=== PATIENT | female | born 1995 | race Two or more races ===

== ENCOUNTER 2024-09-27 12:19 | Observation (INO) | payer MEDICAID ==
[~2024-09-27 12:19] MED LIST: PREN-96 PO
--- NOTE | 2024-09-27 14:03 | DVH ---
LIMITED OB ULTRASOUND > 14 WKS: HISTORY: cervical length TECHNIQUE: Multiple real-time grayscale images of the gravid uterus with duplex Doppler color flow an d M-mode spectral analysis. TRANSDUCER: Transabdominal COMPARISON: None FINDINGS: IUP single live fetus. heart rate 155 beats per minute Maximum vertical pocket is 5.4 cm. Cervix appears closed with a cervical length of 5.1 cm. Cephalic Presentation Anterior placenta without previa or abruption. IMPRESSION: 1. Single live IUP with heart rate of 155 bpm. 2. Cervix appears closed and measures 5.1 cm in length.
--- NOTE | 2024-09-29 00:20 | DVHDS2 ---
Physician Discharge Progress N Final Diagnosis: abd pain 26wks Operations or Procedures: Operations or Procedures nst reviwed reactive,sono Condition on Discharge: Good Disposition: Home Discharge Instructions: Diet: Regular Activity: No Restrictions, As Tolerated Medications: na Follow Up Care: Specialist: 3d Discharge Statement: "Patient was advised to return to the ER or call 911 if any headaches, dizziness, shortness of breath, chest pain, abdominal pain, bleeding, fevers, or worsening of medical condition. Patient was counseled about treatment plan, medications, possible side effects, patientverbalized understanding. All questions were answered to the best of my ability. This discharge took greater then 30 minutes in planning, reviewing docum entation, counseling the patient, and discussing with other team members." Visit Coding OBGYN Date of Service: Sep 27, 2024 Billing Provider: ROCIO DAWSON DO RN IMAGING Common Visit Codes: [id number] INP/OBS CARE (HIGH) RN IMAGING Procedure Codes: 54389-23- NON-STRESS TEST ORCIO DAWSON DO Sep 29, 2024 00:20
== END 2024-09-27 14:50 | disposition home or self-care (01) ==
LOC: LDRP 12:19
PROVIDERS: ADMIT Obstetrics & Gynecology; ATTEND Obstetrics & Gynecology
DX: O26.892 Other specified pregnancy related conditions, second trimester (principal); R10.30 Lower abdominal pain, unspecified; Z3A.26 26 weeks gestation of pregnancy; Z79.899 Other long term (current) drug therapy; Z98.890 Other specified postprocedural states
CPT/HCPCS: 59025; 76815; 81002; 94760; G0378

== ENCOUNTER 2024-10-27 09:06 | Observation (INO) | payer MEDICAID ==
[2024-10-27] MEDS ORDERED: OMEGCAP2 OR (09:40)
[2024-10-27] MEDS ORDERED: CHOL20007 PO (09:40)
[2024-10-27] MEDS ORDERED: ASPI-543 PO (09:40)
[2024-10-27] MEDS ORDERED: LEVO25CA3 PO (09:40)
[2024-10-27] MEDS ORDERED: DOXY25TA9 PO (09:40)
--- NOTE | 2024-10-27 17:01 | DVHDS2 ---
Physician Discharge Progress N Final Diagnosis: testing for GDM, A1 and hypothyroidism Operations or Procedures: Operations or Procedures 29yo IUP@30.4wks VSS NST reactive FKC/PTL precautions reviewed Dr. Irizarry consulted, agrees with POC. Condition on Discharge: Stable Disposition: Home Discharge Instructions: Diet: Consistent carbohydrate Activity: No Restrictions, As Tolerated Medications: see med list Follow Up Care: Specialist: f/u in 1wk Discharge Statement: "Patient was advised to return to the ER or call 911 if any headaches, dizziness, shortness of breath, chest pain, abdominal pain, bleeding, fevers, or worsening of medical condition. Patient was counseled about treatment plan, medications, possible side effects, patientverbalized understanding. All questions were answered to the best of my ability. This discharge took greater then 30 minutes in planning, reviewing documentation, counseling the patient, and discussing with other team members." Visit Coding OBGYN Date of Service: Oct 27, 2024 Billing Provider: EDEN GARCIA CNM RAW STOCK DYEING MACHINE TENDER Common Visit Codes: 53087-[id number] OBS CARE (HIGH) RAW STOCK DYEING MACHINE TENDER Procedure Codes: 65655-68- NON-STRESS TEST EDEN GARCIA CNM Oct 27, 2024 17:01
== END 2024-10-27 09:55 | disposition home or self-care (01) ==
LOC: LDRP 09:06
PROVIDERS: ADMIT Obstetrics & Gynecology; ATTEND Obstetrics & Gynecology
DX: O24.419 Gestational diabetes mellitus in pregnancy, unspecified control (principal); O99.283 Endocrine, nutritional and metabolic diseases complicating pregnancy, third trimester; E03.9 Hypothyroidism, unspecified; Z3A.30 30 weeks gestation of pregnancy; Z98.890 Other specified postprocedural states; Z79.899 Other long term (current) drug therapy
CPT/HCPCS: 59025; 81002; 82948; 82962; 94760; G0378

== ENCOUNTER 2024-11-03 06:21 | Observation (INO) | payer MEDICAID ==
[~2024-11-03 06:21] MED LIST changes: +ASPI-543 PO; +CHOL20007 PO; +DOXY25TA9 PO; +LEVO25CA3 PO; +OMEGCAP2 OR
--- NOTE | 2024-11-03 10:10 | DVHDS2 ---
Physician Discharge Progress N Final Diagnosis: testing for GDM, A1 and hypothyroidism Operations or Procedures: Operations or Procedures 29yo IUP@31.4wks VSS NST reactive FKC/PTL precautions reviewed Dr. Irizarry consulted, agrees with POC. Condition on Discharge: Stable Disposition: Home Discharge Instructions: Diet: Consistent carbohydrate Activity: No Restrictions, As Tolerated Medications: SEE MED LIST Follow Up Care: Specialist: f/u in 1 wk Discharge Statement: "Patient was advised to return to the ER or call 911 if any headaches, dizziness, shortness of breath, chest pain, abdominal pain, bleeding, fevers, or worsening of medical condition. Patient was counseled about treatment plan, medications, possible side effects, patientverbalized understanding. All questions were answered to the best of my ability. This discharge took greater then 30 minutes in planning, reviewing documentation, counseling the patient, and discussing with other team members." Visit Coding OBGYN Date of Service: Nov 03, 2024 Billing Provider: EDEN GARCIA CNM BARREL FINISHER Common Visit Codes: 54077-[id number] OBS CARE (HIGH) BARREL FINISHER Procedure Codes: 13338-42- NON-STRESS TEST EDEN GARCIA CNM Nov 03, 2024 10:10
== END 2024-11-03 10:18 | disposition home or self-care (01) ==
LOC: LDRP 09:10
PROVIDERS: ADMIT Obstetrics & Gynecology; ATTEND Obstetrics & Gynecology
DX: O24.419 Gestational diabetes mellitus in pregnancy, unspecified control (principal); O99.283 Endocrine, nutritional and metabolic diseases complicating pregnancy, third trimester; E03.9 Hypothyroidism, unspecified; Z3A.31 31 weeks gestation of pregnancy; Z79.899 Other long term (current) drug therapy; Z98.890 Other specified postprocedural states
CPT/HCPCS: 59025; 81002; 82948; 82962; 94760; G0378

== ENCOUNTER 2024-11-10 10:07 | Observation (INO) | payer MEDICAID ==
--- NOTE | 2024-11-10 10:57 | DVH ---
CLINICAL HISTORY: Gestational diabetes. Hypothyroid COMPARISON: None TECHNIQUE: biophysical profile was performed. Transabdominal sonographic images of the fetus we re obtained. FINDINGS: The fetus is in breech position. heart rate measures 168 BPM. Amniotic fluid index me asures 19.6 cm. The placenta is anterior in position without visualized evidence of placenta previa o r abruption. BPP profile is an overall score of 8/8, with 2/2 points for breathing, with at least one episode of breathing over a 30 second duration during a 30 minute observation, 2/2 points for m ovements, with 3 or more discrete body or limb movements, 2/2 points for tone, with one or more episodes of extremity extension with return to flexion, or opening and closing of hand, and 2/ 2 points for amniotic fluid, with at least 1 pocket of amniotic fluid that measures 2 cm in 2 perpend icular planes. IMPRESSION: 1. BPP score of 8/8. 2. Breech presentation.
--- NOTE | 2024-11-10 12:18 | DVHDS2 ---
Physician Discharge Progress N Final Diagnosis: testing for GDM, A1 and hypothyroidism Operations or Procedures: Operations or Procedures 29yo IUP@32.4wks, +FM, denies UCs/VB VSS NST reactive/Category I EFM TOCO: irregular UCs initially, treated with 1L LR IV bolus then no UCs noted FKC/PTL precautions reviewed Recommended spinning babies breech exercises and [place] certified pediatric acute care unit nurse for breech presentation. Dr. Irizarry consulted, agrees with POC. Other Interventions Other Interventions [place] [address] Ph: [phone] DIAGNOSTIC IMAGING Diagnostic Imaging Report : [id number] Signed PATIENT: JESE COFFEY ACCT: [id number] UNIT: [id number] : 1995 LOC: [facility] ROOM / BED: [facility] / AGE / SEX: 29 / F ADM STATUS: ADM IN SERVICE 1026 ORDERING PHYSICIAN: EDEN GARCIA CNM PROCEDURE(s): BPP - BIOPHYSICAL PROFILE REASON: gdma1/hypothyroid ORDER NUMBER(s): [id number], ACCESSION NUMBER(s): [id number] CLINICAL HISTORY: Gestational diabetes. Hypothyroid COMPARISON: None TECHNIQUE: biophysical profile was performed. Transabdominal sonographic images of the fetus were obtained. FINDINGS: The fetus is in breech position. heart rate measures 168 BPM. Amniotic fluid index measures 19.6 cm. The placenta is anterior in position without visualized evidence of placenta previa or abruption. BPP profile is an overall score of 8/8, with 2/2 points for breathing, with at least one episode of breathing over a 30 second duration during a 30 minute observation, 2/2 points for movements, with 3 or more discrete body or limb movements, 2/2 points for tone, with one or more episodes of extremity extension with return to flexion, or opening and closing of hand, and 2/2 points for amniotic fluid, with at least 1 pocket of amniotic fluid that measures 2 cm in 2 perpendicular planes. IMPRESSION: 1. BPP score of 8/8. 2. Breech presentation. ATED BY: TERRY IBARRA DO DICTATED DATE/TIME: 11/10/241054 SIGNED BY: TERRY IBARRA DO SIGNED DATE/TIME: 11/10/24 105 CC: Condition on Discharge: Stable Disposition: Home Discharge Instructions: Diet: Consistent carbohydrate Activity: No Restrictions, As Tolerated Medications: see med list Follow Up Care: Specialist: f/u in 1 wk Discharge Statement: "Patient was advised to return to the ER or call 911 if any headaches, dizziness, shortness of breath, chest pain, abdominal pain, bleeding, fevers, or worsening of medical condition. Patient was counseled about treatment plan, medications, possible side effects, patientverbalized understanding. All questions were answered to the best of my ability. This discharge took greater then 30 minutes in planning, reviewing documentation, counseling the patient, and discussing with other team members." Visit Coding OBGYN Date of Service: Nov 10, 2024 Billing Provider: EDEN GARCIA CNM DEEP FAT COOK FRY Common Visit Codes: [id number]-[id number] OBS CARE (HIGH) DEEP FAT COOK FRY Procedure Codes: 05957-08- NON-STRESS TEST EDEN GARCIA CNM Nov 10, 2024 12:18
== END 2024-11-10 12:50 | disposition home or self-care (01) ==
LOC: LDRP 10:07
PROVIDERS: ADMIT Obstetrics & Gynecology; ATTEND Obstetrics & Gynecology
DX: O24.419 Gestational diabetes mellitus in pregnancy, unspecified control (principal); O99.283 Endocrine, nutritional and metabolic diseases complicating pregnancy, third trimester; E03.9 Hypothyroidism, unspecified; Z3A.32 32 weeks gestation of pregnancy; Z98.890 Other specified postprocedural states; Z79.899 Other long term (current) drug therapy
CPT/HCPCS: 59025; 76819; 81002; 82948; 82962; 94760; G0378

== ENCOUNTER 2024-11-17 07:27 | Observation (INO) | payer MEDICAID ==
--- NOTE | 2024-11-17 08:59 | DVH ---
CLINICAL HISTORY: Gestational diabetes. COMPARISON: US BIOPHYSICAL PROFILE on DOS: 11/10/24 TECHNIQUE: biophysical profile was performed. Transabdominal sonographic images of the fetus we re obtained. FINDINGS: The fetus is in cephalic position. heart rate measures 150 BPM. Amniotic fluid index measures 16.1 cm. The placenta is anterior in position without evidence of previa or abruption seen. BPP profile is an overall score of 8/8, with 2/2 points for breathing, with at least one episode of breathing over a 30 second duration during a 30 minute observation, 2/2 points for m ovements, with 3 or more discrete body or limb movements, 2/2 points for tone, with one or more episodes of extremity extension with return to flexion, or opening and closing of hand, and 2/ 2 points for amniotic fluid, with at least 1 pocket of amniotic fluid that measures 2 cm in 2 perpend icular planes. IMPRESSION: 1. BPP score of 8/8. 2. Cephalic presentation.
--- NOTE | 2024-11-17 09:17 | DVHDS2 ---
Physician Discharge Progress N Final Diagnosis: testing for GDM, A1 and hypothyroidism Operations or Procedures: Operations or Procedures 29yo IUP@33.4wks VSS NST reactive FKC/PTL precautions reviewed Dr. Irizarry consulted, agrees with POC. Other Interventions Other Interventions [address] [address] Ph: [phone] DIAGNOSTIC IMAGING Diagnostic Imaging Report : [id number] Signed PATIENT: JESE COFFEY ACCT: [id number] UNIT: [id number] : 1995 LOC: [facility] ROOM / BED: TRIAGE3 / A AGE / SEX: 29 / F ADM STATUS: ADM IN SERVICE 3 ORDERING PHYSICIAN: EDEN GARCIA CNM PROCEDURE(s): BPP - BIOPHYSICAL PROFILE REASON: gdma1 ORDER NUMBER(s): [id number], ACCESSION NUMBER(s): [id number] CLINICAL HISTORY: Gestational diabetes. COMPARISON: US BIOPHYSICAL PROFILE on DOS: 11/10/24 TECHNIQUE: biophysical profile was performed. Transabdominal sonographic images of the fetus were obtained. FINDINGS: The fetus is in cephalic position. heart rate measures 150 BPM. Amniotic fluid index measures 16.1 cm. The placenta is anterior in position without evidence of previa or abruption seen. BPP profile is an overall score of 8/8, with 2/2 points for b reathing, with at least one episode of breathing over a 30 second duration during a 30 minute observation, 2/2 points for movements, with 3 or more discrete body or limb movements, 2/2 points for tone, with one or more episodes of extremity extension with return to flexion, or opening and closing of hand, and 2/2 points for amniotic fluid, with at least 1 pocket of amniotic fluid that measures 2 cm in 2 perpendicular planes. IMPRESSION: 1. BPP score of 8/8. 2. Cephalic presentation. ATED BY: TERRY IBARRA DO DICTATED DATE/TIME: 11/17/24855 SIGNED BY: TERRY IBARRA DO SIGNED DATE/TIME: 11/17/24855 CC: Condition on Discharge: Stable Disposition: Home Discharge Instructions: Diet: Consistent carbohydrate Activity: No Restrictions, As Tolerated Medications: see med list Follow Up Care: Specialist: f/u in 1wk Discharge Statement: "Patient was advised to return to the ER or call 911 if any headaches, dizziness, shortness of breath, chest pain, abdominal pain, bleeding, fevers, or worsening of medical condition. Patient was counseled about treatment plan, medications, possible side effects, patientverbalized understanding. All questions were answered to the best of my ability. This discharge took greater then 30 minutes in planning, reviewing documentation, counseling the patient, and discussing with other team members." Visit Coding OBGYN Date of Service: Nov 17, 2024 Billing Provider: EDEN GARCIA CNM PLATER APPRENTICE Common Visit Codes: [id number]-[id number] OBS CARE (HIGH) PLATER APPRENTICE Procedure Codes: 02641-42- NON-STRESS TEST EDEN GARCIA CNM Nov 17, 2024 09:17
== END 2024-11-17 09:10 | disposition home or self-care (01) ==
LOC: UNDOADMOB 08:03 → LDRP 08:03
PROVIDERS: ADMIT Obstetrics & Gynecology; ATTEND Obstetrics & Gynecology
DX: O24.419 Gestational diabetes mellitus in pregnancy, unspecified control (principal); O99.283 Endocrine, nutritional and metabolic diseases complicating pregnancy, third trimester; E03.9 Hypothyroidism, unspecified; Z3A.33 33 weeks gestation of pregnancy; Z98.890 Other specified postprocedural states; Z79.899 Other long term (current) drug therapy
CPT/HCPCS: 59025; 76819; 81002; 82948; 82962; 94760; G0378

== ENCOUNTER 2024-11-24 00:41 | Observation (INO) | payer MEDICAID ==
--- NOTE | 2024-11-24 10:18 | DVH ---
BIOPHYSICAL PROFILE HISTORY: GDMA1/Hypothyroid TECHNIQUE: Multiple transabdominal real-time grayscale sonographic images through the gravid uterus o f the fetus with duplex doppler color flow and M-mode spectral analysis FINDINGS: BIOPHYSICAL PROFILE: breathing score: 2 movement score: 2 tone score: 2 Quantitative NICOLE score: 2 (NICOLE: 14.9 cm.) Total score: 8/8 Single live fetus in cephalic presentation. heart rate 146 beats per minute. Anterior placenta without previa or abruption Biophysical profile score 8/8 corresponding to an CLARA of 01/01/25 IMPRESSION: Biophysical profile score: 8/8
--- NOTE | 2024-11-24 10:33 | DVHDS2 ---
Physician Discharge Progress N Final Diagnosis: testing for GDM, A1 Operations or Procedures: Operations or Procedures 29yo IUP@34.4wks, +FM, denies UCs/LOF/VB VSS Unable to get continuous NST due to movement (FHR baseline 140, +accels, - decels, moderate variability) TOCO no UCs BPP 8/8 FKC/PTL/PreE precautions reviewed Dr. Irizarry consulted, agrees with POC. Other Interventions Other Interventions [place] [address] Ph: [phone] DIAGNOSTIC IMAGING Diagnostic Imaging Report : [id number] Signed PATIENT: JESE COFFEY ACCT: [id number] UNIT: [id number] : 1995 LOC: [facility] ROOM / BED: TRIAGE2 / A AGE / SEX: 29 / F ADM STATUS: ADM IN SERVICE 0910 ORDERING PHYSICIAN: EDEN GARCIA CNM PROCEDURE(s): BPP - BIOPHYSICAL PROFILE REASON: GDMA1/Hypothyroid ORDER NUMBER(s): [id number], ACCESSION NUMBER(s): [id number] BIOPHYSICAL PROFILE HISTORY: GDMA1/Hypothyroid TECHNIQUE: Multiple transabdominal real-time grayscale sonographic images through the gravid uterus of the fetus with duplex doppler color flow and M-mode spectral analysis FINDINGS: BIOPHYSICAL PROFILE: breathing score: 2 movement score: 2 tone score: 2 Quantitative NICOLE score: 2 (NICOLE: 14.9 cm.) Total score: 8/8 Single live fetus in cephalic presentation. heart rate 146 beats per min [place]. Anterior placenta without previa or abruption Biophysical profile score 8/8 corresponding to an CLARA of 01/01/25 IMPRESSION: Biophysical profile score: 8/8 ATED BY: SANTOSH GALVEZ MD DICTATED DATE/TIME: 11/24/24 1016 SIGNED BY: SANTOSH GALVEZ MD SIGNED DATE/TIME: 11/24/24 1016 CC: Condition on Discharge: Stable Disposition: Home Discharge Instructions: Diet: Consistent carbohydrate Activity: No Restrictions, As Tolerated Follow Up/Referral: as scheduled. Medications: see med list Follow Up Care: Specialist: f/u in 1 wk Discharge Statement: "Patient was advised to return to the ER or call 911 if any headaches, dizziness, shortness of breath, chest pain, abdominal pain, bleeding, fevers, or worsening of medical condition. Patient was counseled about treatment plan, medications, possible side effects, patientverbalized understanding. All questions were answered to the best of my ability. This discharge took greater then 30 minutes in planning, reviewing docume ntation, counseling the patient, and discussing with other team members." Visit Coding OBGYN Date of Service: Nov 24, 2024 Billing Provider: EDEN GARCIA CNM PUBLIC AFFAIRS MANAGER Common Visit Codes: [id number]-[id number] OBS CARE (HIGH) PUBLIC AFFAIRS MANAGER Procedure Codes: 04019-51- NON-STRESS TEST EDEN GARCIA CNM Nov 24, 2024 10:33
== END 2024-11-24 10:22 | disposition home or self-care (01) ==
LOC: LDRP 09:05
PROVIDERS: ADMIT Obstetrics & Gynecology; ATTEND Obstetrics & Gynecology
DX: O24.419 Gestational diabetes mellitus in pregnancy, unspecified control (principal); O99.283 Endocrine, nutritional and metabolic diseases complicating pregnancy, third trimester; E03.9 Hypothyroidism, unspecified; Z3A.34 34 weeks gestation of pregnancy; Z98.890 Other specified postprocedural states; Z79.899 Other long term (current) drug therapy
CPT/HCPCS: 59025; 76819; 81002; 82948; 82962; 94760; G0378

== ENCOUNTER 2024-12-01 07:10 | Observation (INO) | payer MEDICAID ==
--- NOTE | 2024-12-01 09:51 | DVH ---
BIOPHYSICAL PROFILE HISTORY: GDMA1 and Hypothyroid TECHNIQUE: Multiple transabdominal real-time grayscale sonographic images through the gravid uterus o f the fetus with duplex doppler color flow and M-mode spectral analysis FINDINGS: BIOPHYSICAL PROFILE: breathing score: 2 movement score: 2 tone score: 2 Quantitative NICOLE score: 2 (INCOLE: 14.7 cm.) Total score: 8/8 Single live fetus in cephalic presentation. heart rate 157 beats per minute. Anterior placenta without previa or abruption Biophysical profile score 8/8 corresponding to an CLARA of 01/01/25 IMPRESSION: Biophysical profile score: 8/8
--- NOTE | 2024-12-01 17:49 | DVHDS2 ---
Physician Discharge Progress N Final Diagnosis: testing for GDM, A1 and hypothyroid Operations or Procedures: Operations or Procedures 29yo IUP@35+wks VSS NST reactive FKC/PTL/preE precautions reviewed Dr. Irizarry consulted, agrees with poc. Other Interventions Other Interventions [address] [address] Ph: [phone] DIAGNOSTIC IMAGING Diagnostic Imaging Report : [id number] Signed PATIENT: JESE COFFEY ACCT: [id number] UNIT: [id number] : 1995 LOC: [facility] ROOM / BED: TRIAGE2 / A AGE / SEX: 29 / F ADM STATUS: ADM IN SERVICE 6 ORDERING PHYSICIAN: EDEN GARCIA CNM PROCEDURE(s): BPP - BIOPHYSICAL PROFILE REASON: GDMA1 and Hypothyroid ORDER NUMBER(s): [id number], ACCESSION NUMBER(s): [id number] BIOPHYSICAL PROFILE HISTORY: GDMA1 and Hypothyroid TECHNIQUE: Multiple transabdominal real-time grayscale sonographic images through the gravid uterus of the fetus with duplex doppler color flow and M-mode spectral analysis FINDINGS: BIOPHYSICAL PROFILE: breathing score: 2 movement score: 2 tone score: 2 Quantitative NICOLE score: 2 (NICOLE: 14.7 cm.) Total score: 8/8 Single live fetus in cephalic presentation. heart rate 157 beats per minute. Anterior placenta without previa or abruption Biophysical profile score 8/8 corresponding to an CLARA of 01/01/25 IMPRESSION: Biophysical profile score: 8/8 ATED BY: SANTOSH GALVEZ MD DICTATED DATE/TIME: 12/01/24948 SIGNED BY: SANTOSH GALVEZ MD SIGNED DATE/TIME: 12/01/24948 CC: Condition on Discharge: Stable Disposition: Home Discharge Instructions: Diet: Cardiac 2g Na,low cholest Activity: No Restrictions, As Tolerated Follow Up/Referral: Keep all scheduled appointments Medications: Continue all prescription medication exactly as prescribed Follow Up Care: Specialist: f/u in 1wk Discharge Statement: "Patient was advised to return to the ER or call 911 if any headaches, dizziness, shortness of breath, chest pain, abdominal pain, bleeding, fevers, or worsening of medical condition. Patient was counseled about treatment plan, medications, possible side effects, patientverbalized understanding. All questions were answered to the best of my ability. This discharge took greater then 30 minutes in planning, reviewing documentation, counseling the patient, and discussing with other team members." Visit Coding OBGYN Date of Service: Dec 01, 2024 Billing Provider: EDEN GARCIA CNM REGISTERED DIETICIAN Common Visit Codes: 48421-[id number] OBS CARE (HIGH) REGISTERED DIETICIAN Procedure Codes: 30772-15- NON-STRESS TEST EDEN GARCIA CNM Dec 01, 2024 17:49
== END 2024-12-01 10:25 | disposition home or self-care (01) ==
LOC: LDRP 08:53
PROVIDERS: ADMIT Obstetrics & Gynecology; ATTEND Obstetrics & Gynecology
DX: O24.419 Gestational diabetes mellitus in pregnancy, unspecified control (principal); O99.283 Endocrine, nutritional and metabolic diseases complicating pregnancy, third trimester; E03.9 Hypothyroidism, unspecified; Z3A.35 35 weeks gestation of pregnancy; Z98.890 Other specified postprocedural states; Z79.899 Other long term (current) drug therapy
CPT/HCPCS: 59025; 76819; 81002; 82948; 82962; G0378

== ENCOUNTER 2024-12-08 08:55 | Observation (INO) | payer MEDICAID ==
--- NOTE | 2024-12-08 09:46 | DVH ---
BIOPHYSICAL PROFILE HISTORY: GDMA1,Hypothyroidism, arrythmia Comparison Study: US BIOPHYSICAL PROFILE on DOS: 12/01/24, US BIOPHYSICAL PROFILE on DOS: 11/24/24, US B IOPHYSICAL PROFILE on DOS: 11/17/24, US BIOPHYSICAL PROFILE on DOS: 11/10/24, US OBSTERICAL LIMITED on DOS: 09/27/24 TECHNIQUE: Multiple real-time grayscale sonographic images through the gravid uterus of the fetus wi th duplex Doppler color flow and M-mode spectral analysis FINDINGS: BIOPHYSICAL PROFILE: breathing score: 2 movement score: 2 tone score: 2 Quantitative NICOLE score: 2 (NICOLE: 15 Cm.) Total score: 8 The cervix is not visualized Single live fetus in cephalic presentation. heart rate 136 beats per minute. Anterior placenta without previa or abruption IMPRESSION: Biophysical profile score: 8
--- NOTE | 2024-12-08 13:15 | DVHDS2 ---
Physician Discharge Progress N Final Diagnosis: testing for GDM, A1/hypothyroidism/ arrythmia Operations or Procedures: Operations or Procedures 29yo IUP@36.4wks, denies UCs/VB/LOF VSS NST reactive FKC/PTL precautions reviewed. Dr. Irizarry consulted, agrees with POC. Other Interventions Other Interventions [place] [address] Ph: [phone] DIAGNOSTIC IMAGING Diagnostic Imaging Report : [id number] Signed PATIENT: JESE COFFEY ACCT: [id number] UNIT: [id number] : 1995 LOC: [facility] ROOM / BED: TRIAGE2 / A AGE / SEX: 29 / F ADM STATUS: ADM IN SERVICE 5 ORDERING PHYSICIAN: EDEN GARCIA CNM PROCEDURE(s): BPP - BIOPHYSICAL PROFILE REASON: GDMA1,Hypothyroidism, arrythmia ORDER NUMBER(s): [id number], ACCESSION NUMBER(s): [id number] BIOPHYSICAL PROFILE HISTORY: GDMA1,Hypothyroidism, arrythmia Comparison Study: US BIOPHYSICAL PROFILE on DOS: 12/01/24, US BIOPHYSICAL PROFILE on DOS: 11/24/24, US BIOPHYSICAL PROFILE on DOS: 11/17/24, US BIOPHYSICAL PROFILE on DOS: 11/10/24, US OBSTERICAL LIMITED on DOS: 09/27/24 TECHNIQUE: Multiple real-time grayscale sonographic images through the gravid uterus of the fetus with duplex Doppler color flow and M-mode spectral analysis FINDINGS: BIOPHYSICAL PROFILE: breathing score: 2 movement score: 2 tone score: 2 Quantitative NICOLE score: 2 (NICOLE: 15 Cm.) Total score: 8 The cervix is not visualized Single live fetus in cephalic presentation. heart rate 136 beats per minute. Anterior placenta without previa or abruption IMPRESSION: Biophysical profile score: 8 ATED BY: STERLING MARSH MD DICTATED DATE/TIME: 12/08/24943 SIGNED BY: STERLING MARSH MD SIGNED DATE/TIME: 12/08/24943 CC: Condition on Discharge: Stable Disposition: Home Discharge Instructions: Diet: Consistent carbohydrate Activity: No Restrictions, As Tolerated Medications: see med list Follow Up Care: Specialist: f/u twice weekly Discharge Statement: "Patient was advised to return to the ER or call 911 if any headaches, dizziness, shortness of breath, chest pain, abdominal pain, bleeding, fevers, or worsening of medical condition. Patient was counseled about treatment plan, medications, possible side effects, patientverbalized understanding. All questions were answered to the best of my ability. This discharge took greater then 30 minutes in planning, reviewing documentation, counseling the patient, and discussing with other team members." Visit Coding OBGYN Date of Service: Dec 08, 2024 Billing Provider: EDEN GARCIA CNM CEMENTER HAND Common Visit Codes: 55956-[id number] OBS CARE (HIGH) CEMENTER HAND Procedure Codes: 29456-31- NON-STRESS TEST EDEN GARCIA CNM Dec 08, 2024 13:15
== END 2024-12-08 10:10 | disposition home or self-care (01) ==
LOC: UNDOADMOB 08:55 → LDRP 08:55
PROVIDERS: ADMIT Obstetrics & Gynecology; ATTEND Obstetrics & Gynecology
DX: O99.413 Diseases of the circulatory system complicating pregnancy, third trimester (principal); I49.9 Cardiac arrhythmia, unspecified; O24.419 Gestational diabetes mellitus in pregnancy, unspecified control; O99.283 Endocrine, nutritional and metabolic diseases complicating pregnancy, third trimester; E03.9 Hypothyroidism, unspecified; Z3A.36 36 weeks gestation of pregnancy; Z98.890 Other specified postprocedural states; Z79.899 Other long term (current) drug therapy
CPT/HCPCS: 59025; 76819; 81002; 82948; 82962; 94760; G0378

== ENCOUNTER 2024-12-11 08:50 | Observation (INO) | payer MEDICAID ==
[2024-12-11] MEDS ORDERED: LEVO50TA7 PO (09:43)
--- NOTE | 2024-12-11 09:51 | DVH ---
BIOPHYSICAL PROFILE HISTORY: GDMA1/ ARRYTHMIA TECHNIQUE: Multiple transabdominal real-time grayscale sonographic images through the gravid uterus of the fetus with duplex Doppler color flow and M-mode spectral analysis FINDINGS: BIOPHYSICAL PROFILE: breathing score: 2 movement score: 2 tone score: 2 Quantitative NICOLE score: 2 (NICOLE: 20.3 Cm.) Total score: 8 The cervix not well visualized. Single live fetus in cephalic presentation. heart rate 153 beats per minute. Grade 2 anterior placenta without previa or abruption IMPRESSION: Biophysical profile score: 8
--- NOTE | 2024-12-11 12:25 | DVHDS2 ---
Physician Discharge Progress N Final Diagnosis: gdm 37wks ,hypothy, arrythmia Operations or Procedures: Operations or Procedures nst reactive reviwed,sono Condition on Discharge: Good Disposition: Home Discharge Instructions: Diet: Consistent carbohydrate Activity: Light activity Medications: na Follow Up Care: Specialist: 3d Discharge Statement: "Patient was advised to return to the ER or call 911 if any headaches, dizziness, shortness of breath, chest pain, abdominal pain, bleeding, fevers, or worsening of medical condition. Patient was counseled about treatment plan, medications, possible side effects, patientverbalized understanding. All questions were answered to the best of my ability. This discharge took greater then 30 minutes in planning, reviewing documentation, counseling the patient, and discussing with other team members." Visit Coding OBGYN Date of Service: Dec 11, 2024 Billing Provider: ROCIO DAWSON DO FINISHING AREA OPERATOR Common Visit Codes: 51375-[id number] OBS CARE (HIGH) FINISHING AREA OPERATOR Procedure Codes: 54770-64- NON-STRESS TEST ROCIO DAWSON DO Dec 11, 2024 12:25
== END 2024-12-11 10:09 | disposition home or self-care (01) ==
LOC: LDRP 08:50 → UNDOADMOB 08:50 → LDRP 08:55
PROVIDERS: ADMIT Obstetrics & Gynecology; ATTEND Obstetrics & Gynecology
DX: O24.419 Gestational diabetes mellitus in pregnancy, unspecified control (principal); O99.283 Endocrine, nutritional and metabolic diseases complicating pregnancy, third trimester; E03.9 Hypothyroidism, unspecified; Z3A.37 37 weeks gestation of pregnancy; Z79.899 Other long term (current) drug therapy; Z98.890 Other specified postprocedural states
CPT/HCPCS: 59025; 76819; 81002; 82948; 82962; 94760; G0378

== ENCOUNTER 2024-12-15 06:28 | Observation (INO) | payer MEDICAID ==
[~2024-12-15 06:28] MED LIST changes: +LEVO50TA7 PO
--- NOTE | 2024-12-15 12:08 | DVH ---
EXAM: US BIOPHYSICAL PROFILE HISTORY: GDMA1/hypothyroid/ arrythmia COMPARISON: US BIOPHYSICAL PROFILE on DOS: 12/11/24 TECHNIQUE: Transabdominal real time babcock scale, color, and doppler evaluation. Permanent images are maintained in the patient record. FINDINGS: Normal biophysical profile score 12/04. heart rate measures 135 beats per minute. Amniotic fluid index 13.8 cm. Vertex position. Anterior placenta location. IMPRESSION: 1. Single viable gestation with normal cardiac heart rate. 2. Normal biophysical profile score.
--- NOTE | 2024-12-15 12:14 | DVH ---
EXAM: US OB ULTRASOUND COMP GTR 14 WKS HISTORY: EFW COMPARISON: US OBSTERICAL LIMITED on DOS: 09/27/24 TECHNIQUE: Transabdominal and endovaginal real time babcock scale, color, and doppler evaluation. Perman ent images are maintained in the patient record. FINDINGS: CLARA by previous US/LMP: 01/01/25 US GESTATIONAL AGE: 39 weeks, 1 days US CLARA: 12/21/24 ESTIMATED WEIGHT: 3857 g HEART RATE: 145 bpm BPD: 9.6 cm, 39 weeks 1 days HC: 36.28 cm AC: 35.52 cm, 39 weeks 3 days FL: 7.6 cm, 38 weeks 6days, % HC/AC: 1.02 ANATOMY: Normal head, 4 chamber heart, face, spine, stomach, kidneys, cord insertion, bladder, extrem ities POSITION: Cephalic PLACENTA: Anterior NICOLE: 13.8 cm IMPRESSION: 1. Single viable gestation with normal cardiac heart rate. 2. Estimated 39 weeks and 1 day with estimated due date 12/21/24.
--- NOTE | 2024-12-15 15:41 | DVHDS2 ---
Physician Discharge Progress N Final Diagnosis: testing for GDM,A1/hypothyroidism/ arrythmia Operations or Procedures: Operations or Procedures 29yo IUP@37.4wks VSS NST reactive FKC/labor precautions reviewed Dr. Irizarry consulted, agrees with POC. Other Interventions Other Interventions [place] [address] Ph: [phone] DIAGNOSTIC IMAGING Diagnostic Imaging Report : [id number] Signed PATIENT: JESE COFFEY ACCT: [id number] UNIT: [id number] : 1995 LOC: [facility] ROOM / BED: TRIAGE1 / A AGE / SEX: 29 / F ADM STATUS: ADM IN SERVICE 1054 ORDERING PHYSICIAN: EDEN GARCIA CNM PROCEDURE(s): BPP - BIOPHYSICAL PROFILE REASON: GDMA1/hypothyroid/ arrythmia ORDER NUMBER(s): [id number], ACCESSION NUMBER(s): [id number] EXAM: US BIOPHYSICAL PROFILE HISTORY: GDMA1/hypothyroid/ arrythmia COMPARISON: US BIOPHYSICAL PROFILE on DOS: 12/11/24 TECHNIQUE: Transabdominal real time babcock scale, color, and doppler evaluation. Permanent images are maintained in the patient record. FINDINGS: Normal biophysical profile score 8/8. heart rate measures 135 beats per minute. Amniotic fluid index 13.8 cm. Vertex position. Anterior placenta location. IMPRESSION: 1. Single viable gestation with normal cardiac heart rate. 2. Normal biophysical profile score. ATED BY: REJI SUAZO MD DICTATED DATE/TIME: 12/15/24 1206 SIGNED BY: REJI SUAZO MD SIGNED DATE/TIME: 12/15/24 1206 CC: Consultations: Consultations [address] [address] Ph: [phone] DIAGNOSTIC IMAGING Diagnostic Imaging Report : [id number] Signed PATIENT: JESE COFFEY ACCT: [id number] UNIT: [id number] : 1995 LOC: [facility] ROOM / BED: TRIAGE1 / A AGE / SEX: 29 / F ADM STATUS: ADM IN SERVICE 1054 ORDERING PHYSICIAN: EDEN GARCIA CNM PROCEDURE(s): OBUS - OB ULTRASOUND COMP GTR 14 WKS REASON: EFW ORDER NUMBER(s): [id number], ACCESSION NUMBER(s): [id number] EXAM: US OB ULTRASOUND COMP GTR 14 WKS HISTORY: EFW COMPARISON: US OBSTERICAL LIMITED on DOS: 09/27/24 TECHNIQUE: Transabdominal and endovaginal real time babcock scale, color, and doppler evaluation. Permanent images are maintained in the patient record. FINDINGS: CLARA by previous US/LMP: 01/01/25 US GESTATIONAL AGE: 39 weeks, 1 days US CLARA: 12/21/24 ESTIMATED WEIGHT: 3857 g HEART RATE: 145 bpm BPD: 9.6 cm, 39 weeks 1 days HC: 36.28 cm AC: 35.52 cm, 39 weeks 3 days FL: 7.6 cm, 38 weeks 6days, % HC/AC: 1.02 ANATOMY: Normal head, 4 chamber heart, face, spine, stomach, kidneys, cord inse rtion, bladder, extremities POSITION: Cephalic PLACENTA: Anterior NICOLE: 13.8 cm IMPRESSION: 1. Single viable gestation with normal cardiac heart rate. 2. Estimated 39 weeks and 1 day with estimated due date 12/21/24. ATED BY: REJI SUAZO MD DICTATED DATE/TIME: 12/15/24 121 SIGNED BY: REJI SUAZO MD SIGNED DATE/TIME: 12/15/24 121 CC: Condition on Discharge: Stable Disposition: Home Discharge Instructions: Diet: Consistent carbohydrate Activity: No Restrictions, As Tolerated Follow Up/Referral: [facility] on Saturday[facility] at 8:00 am for NST/BPP Medications: see med list Follow Up Care: Specialist: f/u in 3 days Discharge Statement: "Patient was advised to return to the ER or call 911 if any headaches, dizziness, shortness of breath, chest pain, abdominal pain, bleeding, fevers, or worsening of medical condition. Patient was counseled about treatment plan, medications, possible side effects, patientverbalized understanding. All questions were answered to the best of my ability. This discharge took greater then 30 minutes in planning, reviewing documen tation, counseling the patient, and discussing with other team members." Visit Coding OBGYN Date of Service: Dec 15, 2024 Billing Provider: EDEN GARCIA CNM TRACK MANAGER Common Visit Codes: [id number] OBS CARE (HIGH) TRACK MANAGER Procedure Codes: 13978-79- NON-STRESS TEST EDEN GARCIA CNM Dec 15, 2024 15:41
== END 2024-12-15 12:49 | disposition home or self-care (01) ==
LOC: UNDOADMOB 10:40 → LDRP 10:40 → UNDODISOB 12:49
PROVIDERS: ADMIT Obstetrics & Gynecology; ATTEND Obstetrics & Gynecology
DX: O24.419 Gestational diabetes mellitus in pregnancy, unspecified control (principal); O99.283 Endocrine, nutritional and metabolic diseases complicating pregnancy, third trimester; E03.9 Hypothyroidism, unspecified; O99.413 Diseases of the circulatory system complicating pregnancy, third trimester; I49.9 Cardiac arrhythmia, unspecified; Z3A.37 37 weeks gestation of pregnancy; Z98.890 Other specified postprocedural states; Z79.899 Other long term (current) drug therapy
CPT/HCPCS: 59025; 76805; 76819; 81002; 82948; 82962; 94760; G0378

== ENCOUNTER 2024-12-18 06:23 | Observation (INO) | payer MEDICAID ==
--- NOTE | 2024-12-18 09:01 | DVH ---
BIOPHYSICAL PROFILE HISTORY: GDMA1, HYPOTHYROID, ARRYTHMIA TECHNIQUE: Multiple transabdominal real-time grayscale sonographic images through the gravid uterus of the fetus with duplex Doppler color flow and M-mode spectral analysis FINDINGS: BIOPHYSICAL PROFILE: breathing score: 2 movement score: 2 tone score: 2 Quantitative NICOLE score: 2 (NICOLE: 13.7 Cm.) Total score: 8 The cervix was not seen Single live fetus in ceohalic presentation. heart rate 161 beats per minute. Grade II anterior placenta without previa or abruption IMPRESSION: Biophysical profile score: 8
--- NOTE | 2024-12-19 08:48 | DVHDS2 ---
Physician Discharge Progress N Final Diagnosis: hypothyroidism,gdm, arrythmia 38wks Operations or Procedures: Operations or Procedures nst reactive reviwed,sono Condition on Discharge: Good Disposition: Home Discharge Instructions: Diet: Regular Activity: No Restrictions, As Tolerated Medications: Take all prescription medications exactly as prescribed Follow Up Care: Specialist: 3d Discharge Statement: "Patient was advised to return to the ER or call 911 if any headaches, dizziness, shortness of breath, chest pain, abdominal pain, bleeding, fevers, or worsening of medical condition. Patient was counseled about treatment plan, medications, possible side effects, patientverbalized understanding. All questions were answered to the best of my ability. This discharge took greater then 30 minutes in planning, reviewing documentation, counseling the patient, and discussing with other team members." Visit Coding OBGYN Date of Service: Dec 18, 2024 Billing Provider: ROCIO DAWSON DO RIBBON WINDER Common Visit Codes: 30178-[id number] OBS CARE (HIGH) RIBBON WINDER Procedure Codes: 99680-73- NON-STRESS TEST ROCIO DAWSON DO Dec 19, 2024 08:48
== END 2024-12-18 10:06 | disposition home or self-care (01) ==
LOC: LDRP 08:08
PROVIDERS: ADMIT Obstetrics & Gynecology; ATTEND Obstetrics & Gynecology
DX: O24.419 Gestational diabetes mellitus in pregnancy, unspecified control (principal); O99.283 Endocrine, nutritional and metabolic diseases complicating pregnancy, third trimester; E03.9 Hypothyroidism, unspecified; O99.413 Diseases of the circulatory system complicating pregnancy, third trimester; I49.9 Cardiac arrhythmia, unspecified; Z3A.38 38 weeks gestation of pregnancy; Z79.899 Other long term (current) drug therapy
CPT/HCPCS: 59025; 76819; 81002; 82948; 82962; G0378

== ENCOUNTER 2024-12-22 06:59 | Observation (INO) | payer MEDICAID ==
--- NOTE | 2024-12-22 09:59 | DVH ---
CLINICAL HISTORY: Gestational diabetes, hypothyroid, arrhythmia. COMPARISON: US BIOPHYSICAL PROFILE on DOS: 12/18/24, US BIOPHYSICAL PROFILE on DOS: 12/15/24, US OB ULT RASOUND COMP GTR 14 WKS on DOS: 12/15/24 TECHNIQUE: biophysical profile was performed. Transabdominal sonographic images of the fetus we re obtained. FINDINGS: The fetus is in cephalic position. heart rate measures 144 BPM. Amniotic fluid index measures 11.4 cm. The placenta is anterior in position without evidence of previa or abruption. BPP profile is an overall score of 8/8, with 2/2 points for breathing, with at least one episode of breathing over a 30 second duration during a 30 minute observation, 2/2 points for m ovements, with 3 or more discrete body or limb movements, 2/2 points for tone, with one or more episodes of extremity extension with return to flexion, or opening and closing of hand, and 2/ 2 points for amniotic fluid, with at least 1 pocket of amniotic fluid that measures 2 cm in 2 perpend icular planes. IMPRESSION: BPP score of 8/8.
--- NOTE | 2024-12-22 11:14 | DVH ---
LIMITED OB ULTRASOUND > 14 WKS: HISTORY: EFW TECHNIQUE: Multiple real-time grayscale images of the gravid uterus with duplex Doppler color flow an d M-mode spectral analysis. TRANSDUCER: Transabdominal COMPARISON: US OB ULTRASOUND COMP GTR 14 WKS on DOS: 12/15/24, US OBSTERICAL LIMITED on DOS: 09/27/24 FINDINGS: IUP single live fetus at 39 weeks and 2 days based on composite averages of the BPD, head circumferen ce, abdominal circumference and femur length Estimated weight 3614 grams heart rate 152 beats per minute Cephalic Presentation AnteriorPlacenta without previa or abruption. IMPRESSION: IUP single live fetus at 39 weeks and 2 days AUA corresponding to an CLARA of 12/27/2024
--- NOTE | 2024-12-22 11:50 | DVHDS2 ---
Physician Discharge Progress N Final Diagnosis: testing for GDM, A1/hypothyroid/ arrythmia Operations or Procedures: Operations or Procedures 29yo IUP@38.4wks VSS NST reactive FKC/LABOR precautions reviewed Dr. Irizarry consulted about IOL next week after SBAR given, agrees with POC. IOL scheduled for 12/29/24 at 0400 for GDM, A1/hypothyroid/ arrythmia Other Interventions Other Interventions [place] [address] Ph: [phone] DIAGNOSTIC IMAGING Diagnostic Imaging Report : [id number] Signed PATIENT: JESE COFFEY ACCT: [id number] UNIT: [id number] : 1995 LOC: [facility] ROOM / BED: [facility] / A AGE / SEX: 29 / F ADM STATUS: DIS IN SERVICE 1007 ORDERING PHYSICIAN: EDEN GARCIA CNM PROCEDURE(s): OBUS - OB ULTRASOUND COMP GTR 14 WKS REASON: EFW ORDER NUMBER(s): [id number], ACCESSION NUMBER(s): [id number] LIMITED OB ULTRASOUND > 14 WKS: HISTORY: EFW TECHNIQUE: Multiple real-time grayscale images of the gravid uterus with duplex Doppler color flow and M-mode spectral analysis. TRANSDUCER: Transabdominal COMPARISON: US OB ULTRASOUND COMP GTR 14 WKS on DOS: 12/15/24, US OBSTERICAL LIMITED on DOS: 09/27/24 FINDINGS: IUP single live fetus at 39 weeks and 2 days based on composite averages of the BPD, head circumference, abdominal circumference and femur length Estimated weight 3614 grams heart rate 152 beats per minute Cephalic Presentation AnteriorPlacenta without previa or abruption. IMPRESSION: IUP single live fetus at 39 weeks and 2 days AUA corresponding to an CLARA of 12/27/2024 ATED BY: STERLING MARSH MD DICTATED DATE/TIME: 12/22/24 1111 SIGNED BY: STERLING MARSH MD SIGNED DATE/TIME: 12/22/24 1111 CC: Condition on Discharge: Stable Disposition: Home Discharge Instructions: Diet: Consistent carbohydrate Activity: No Restrictions, As Tolerated Medications: see med list Follow Up Care: Specialist: f/u in 3 days Discharge Statement: "Patient was advised to return to the ER or call 911 if any headaches, dizziness, shortness of breath, chest pain, abdominal pain, bleeding, fevers, or worsening of medical condition. Patient was counseled about treatment plan, medications, possible side effects, patientverbalized understanding. All questions were answered to the best of my ability. This discharge took greater then 30 minutes in planning, reviewing documentation, counseling the patient, and discussing with other team members." Visit Coding OBGYN Date of Service: Dec 22, 2024 Billing Provider: EDEN GARCIA CNM BOATSWAINS MATE Common Visit Codes: 33498-UNPRHOY OBS CARE (HIGH) BOATSWAINS MATE Procedure Codes: 24502-07- NON-STRESS TEST EDEN GARCIA CNM Dec 22, 2024 11:50
== END 2024-12-22 10:49 | disposition home or self-care (01) ==
LOC: LDRP 09:15 → UNDOADMOB 09:15 → LDRP 09:22 → UNDODISOB 10:49
PROVIDERS: ADMIT Obstetrics & Gynecology; ATTEND Obstetrics & Gynecology
DX: O24.419 Gestational diabetes mellitus in pregnancy, unspecified control (principal); O99.283 Endocrine, nutritional and metabolic diseases complicating pregnancy, third trimester; E03.9 Hypothyroidism, unspecified; O99.413 Diseases of the circulatory system complicating pregnancy, third trimester; I49.9 Cardiac arrhythmia, unspecified; Z3A.38 38 weeks gestation of pregnancy; Z98.890 Other specified postprocedural states
CPT/HCPCS: 59025; 76805; 76819; 81002; 82948; 82962; 94760; G0378

== ENCOUNTER 2024-12-25 06:48 | Observation (INO) | payer MEDICAID ==
--- NOTE | 2024-12-25 12:37 | DVH ---
BIOPHYSICAL PROFILE HISTORY: GDMA1, hypothyroid TECHNIQUE: Multiple real-time grayscale sonographic images through the gravid uterus of the fetus wi th duplex Doppler color flow. FINDINGS: BIOPHYSICAL PROFILE: breathing score: 2 movement score: 2 tone score: 2 Quantitative NICOLE score: 2 Total score: 8 out of 8 Single live intrauterine . Cephalic lie. heart rate 156 beats per minute. NICOLE 17.8 cm. Placenta anteriorly positioned. IMPRESSION: Biophysical profile score: 8 out of 8
--- NOTE | 2024-12-27 08:40 | DVHDS2 ---
Physician Discharge Progress N Final Diagnosis: 39wks ,gdm Operations or Procedures: Operations or Procedures nst reactive reviwed,sono risk of shoulder dyst d/w pt .possib of shoulder dyst d/w pt . need for pcs d/w pt Condition on Discharge: Good Disposition: Home Discharge Instructions: Diet: Consistent carbohydrate Activity: No Restrictions, As Tolerated Medications: na Follow Up Care: Specialist: pt wants induction on with azy Discharge Statement: "Patient was advised to return to the ER or call 911 if any headaches, dizziness, shortness of breath, chest pain, abdominal pain, bleeding, fevers, or worsening of medical condition. Patient was counseled about treatment plan, medications, possible side effects, patientverbalized understanding. All questions were answered to the best of my ability. This discharge took greater then 30 minutes in planning, reviewing docu mentation, counseling the patient, and discussing with other team members." Visit Coding OBGYN Date of Service: Dec 25, 2024 Billing Provider: ROCIO DAWSON DO SENIOR SERVICE AIDE Common Visit Codes: [id number] OBS CARE (HIGH) SENIOR SERVICE AIDE Procedure Codes: 82116-41- NON-STRESS TEST ROCIO DAWSON DO Dec 27, 2024 08:40
== END 2024-12-25 13:19 | disposition home or self-care (01) ==
LOC: LDRP 11:55
PROVIDERS: ADMIT Obstetrics & Gynecology; ATTEND Obstetrics & Gynecology
DX: O24.419 Gestational diabetes mellitus in pregnancy, unspecified control (principal); Z3A.39 39 weeks gestation of pregnancy; Z79.899 Other long term (current) drug therapy
CPT/HCPCS: 59025; 76819; 81002; 82948; 94760; G0378

== ENCOUNTER 2024-12-29 03:50 | Inpatient (IN) | payer MEDICAID ==
[~2024-12-29] VITALS: Ht 162.6 cm; Wt 127.0 kg
[2024-12-29] MEDS ORDERED: LIDOCAINE 2%HCL (LOCAL ANESTH.) INJ 20ML MDV IJ PRN (04:00)
[2024-12-29 04:44] LABS: Hematocrit 36.1 % (36.0-46.0); Hemoglobin 12.4 g/dL (12.2-16.2); Mean Corpuscular Hemoglobin 29.8 pg (28.0-32.0); Mean Corpuscular Volume 86.5 fL (80.0-100.0); Nucleated Red Blood Cells % 0.0 %
[2024-12-29 04:50] LABS: Urine Protein, UAD Negative (Negative)
[2024-12-29 04:57] LABS: Barbiturate Scree,Urine Neg (NEGATIVE); Opiate Scree,Urine Neg (NEGATIVE); Phencyclidine Screen, Urine Neg (NEGATIVE)
[2024-12-29 04:58] LABS: Amphetamine Screen, Urine Neg (NEGATIVE); Benzodiazephine Screen, Urine Neg (NEGATIVE); Cannabinoid Screen, Urine Neg (NEGATIVE); Cocaine Screen, Urine Neg (NEGATIVE)
[2024-12-29 04:59] LABS: Alanine Aminotransferase 13 U/L (7-40); Albumin 3.8 g/dL (3.2-4.8); Anion Gap 11 (5-15); Bilirubin, Total 0.3 mg/dL (0.2-1.0); Calcium 9.0 mg/dL (8.7-10.4); Carbon Dioxide 18 mmol/L (20-31); Chloride 106 mmol/L (98-107); Glucose 111 mg/dL (74-106); INR 0.99 (0.9-1.15); Partial Thromboplastin Time 26.9 SEC (24.5-34.5); Potassium 3.6 mmol/L (3.5-5.1); Prothrombin Time 10.5 sec (9.3-11.8); Sodium 135 mmol/L (136-145); Total Protein 6.4 g/dL (5.7-8.2)
[2024-12-29 05:00] LABS: Alkaline Phosphatase 145 U/L (46-116); BUN/Creatinine Ratio 9.6 (10.0-20.0); Blood Urea Nitrogen < 5 mg/dL (9-23)
--- NOTE | 2024-12-29 05:53 | DVHHP2 ---
OB CC & HPI Date Date of Admission: Dec 29, 2024 Patient Identification: : 2 Para: 1 EDC: Jan 01, 2025 Chief Complaints: Reason for admission: induction of labor Indication for induction: other Other reason for admission: Induction of labor Gestational Diabetes A1 Diet Control Hypothyroidism Arrhythmia Admission Nurse Assessment Rev: Yes History of Present Complaints HPI: 29 y/o IUP@39.4wks [facility] . Scheduled IOL GDM A1 / Hypothyroidism / Hyperlipidemia / Arrhythmia Denies LOF/VB/KHALIL/vision changes/RUQ pain. Reports good movement PNC: Routine PNC at [facility], adequate visits, O Positive GBS negative Rubella Imm Problems Hyperthyroidism taking Synthroid 50 mcg daily GDM A1 Diet Control Hyperlipidemia not taking medications Medications: PNV/ Unisom /[place] Fish Oil/ Synthroid 50 mcg daily FOB new partner in OB hx: x1, uncomplicated in 2019 Objective VSS EFW - 8lb 6 oz / 3798 grams Vertex -Cephalic US 12/25 SVE - Ft/ Thick /-3 See lab results Laboratory Tests Test 12/29/24 04:00 12/29/24 04:10 Range/Units Urine Color Light-yellow Yellow Urine Clarity Clear Clear Urine pH 6.0 5.0-9.0 Urine Specific Broussard 1.015 1.001-1.035 Urine Protein Negative Negative Urine Ketones Negative Negative Urine Blood Negative Negative /uL Urine Nitrite Negative Negative Urine Bilirubin Negative Negative Urine Urobilinogen Normal Negative mg/dL Urine Leukocyte Esterase Negative Negative /uL Urine RBC None seen 0 - 4 /hpf Urine Microscopic WBC 1 0-5 /HPF Urine Squamous Epithelial Cells Few <5 /hpf Urine Bacteria None seen None Seen /hpf Urine Glucose Normal Normal mg/dL Urine Opiates Screen Neg NEGATIVE Urine Fentanyl Screen Neg NEGATIVE Urine Barbiturates Screen Neg NEGATIVE Urine Phencyclidine Screen Neg NEGATIVE Urine Amphetamines Screen Neg NEGATIVE Urine Benzodiazepines Screen Neg NEGATIVE Urine Cocaine Screen Neg NEGATIVE Urine Cannabinoids Screen Neg NEGATIVE White Blood Count 10.0 4.4-10.8 10^3/uL Red Blood Count 4.18 4.0-5.20 10^6/uL Hemoglobin 12.4 12.2-16.2 g/dL Hematocrit 36.1 36.0-46.0 % Mean Corpuscular Volume 86.5 80.0-100.0 fL Mean Corpuscular Hemoglobin 29.8 28.0-32.0 pg Mean Corpuscular Hemoglobin Concent 34.5 32.0-36.0 g/dL Red Cell Distribution Width 13.9 11.8-14.3 % Platelet Count 229 140-450 10^3/uL Mean Platelet Volume 9.2 6.9-10.8 fL Neutrophils (%) (Auto) 68.1 37.0-80.0 % Lymphocytes (%) (Auto) 23.5 10.0-50.0 % Monocytes (%) (Auto) 5.6 0.0-12.0 % Eosinophils (%) (Auto) 2.2 0.0-7.0 % Basophils (%) (Auto) 0.6 0.0-2.0 % Neutrophils # (Auto) 6.8 1.6-8.6 10 ^3/uL Lymphocytes # (Auto) 2.3 0.4-5.4 10 ^3/uL Monocytes # (Auto) 0.6 0-1.3 10 ^3/uL Eosinophils # (Auto) 0.2 0-0.8 10 ^3/uL Basophils # (Auto) 0.1 0-0.2 10 ^3/uL Nucleated Red Blood Cells 0.0 % Prothrombin Time 10.5 9.3-11.8 sec Prothrombin Time INR 0.99 0.9-1.15 Activated Partial Thromboplast Time 26.9 24.5-34.5 SEC Sodium Level 135 L 136-145 mmol/L Potassium Level 3.6 3.5-5.1 mmol/L Chloride Level 106 98-107 mmol/L Carbon Dioxide Level 18 L 20-31 mmol/L Anion Gap 11 5-15 Blood Urea Nitrogen < 5 L 9-23 mg/dL Creatinine 0.52 L 0.550-1.02 mg/dL Glomerular Filtration Rate Calc 127 >90 mL/min BUN/Creatinine Ratio 9.6 L 10.0-20.0 Serum Glucose 111 H 74-106 mg/dL Calcium Level 9.0 8.7-10.4 mg/dL Total Bilirubin 0.3 0.2-1.0 mg/dL Aspartate Amino Transferase (AST) 19 13-40 U/L Alanine Aminotransferase (ALT) 13 7-40 U/L Alkaline Phosphatase 145 H 46-116 U/L Total Protein 6.4 5.7-8.2 g/dL Albumin 3.8 3.2-4.8 g/dL Treponema pallidum Antibody Pending Assessment 19yo IUP@39.4wks Induction of Labor Gestational Diabetes A1 Hypothyroidism Hyperlipidemia Arrhythmia noted Category I EFM No contractions noted Intact Membranes CNM is co-managing care with Dr. Irizarry. Plan Admit to L&D Informed consent obtained Discussed risks, benefits, alternatives of IOL Pt consents to IOL with Cytotec. Bedside US for conformation of presentation monitoring per order Due to her GDM/ Hypothyroidism and Arrhythmia continuous monitoring for IOL Routine labs ordered Pain mgmt PRN Frequent position changes in and out of bed encouraged Limit SVE unless necessary Intrauterine resuscitation PRN Anticipate CNM will consult with Dr. Irizarry PRN LABOR- If on Pitocin and/or epidural in place, continuous EFM. NO SVE-Notify provider first if SVE is needed. Okay to give Cytotec without SVE if pt condition is unchanged. Past Medical History Cardiac: Hyperlipidemia Pulmonary: No pertinent Hx Central Nervous System: No pertinent Hx GI: No pertinent Hx Hemotology/Oncology: No pertinent Hx Hepatobiliary: No pertinent Hx Psychiatric: No pertinent Hx Musculoskeletal: No pertinent Hx Rheumotologic: No pertinent Hx Infectious Disease: No peritnent Hx ENT: No pertinent Hx Renal/: No pertinent Hx Endocrine: Hypothyroidism Dermatology: No pertinent Hx Past Surgical History: No pertinent Hx OB History OB History Care: Good Care Ultrasounds: Normal mid trimester US, Other Abnormal Ultrasound Findings: Arrhythmia Obstetrical Complications: Gestational Diabetes Other Concerns: Hypothyroidism Hyperlipidemia Allergies: Coded Allergies: Tomato (Verified Allergy, Intermediate, rash, 12/29/24) Home Meds Reported Medications Levothyroxine Sodium (Levothyroxine Sodium) 50 Mcg Tab, 50 MCG PO QAM for 30 Days, MCG 12/11/24 Levothyroxine Sodium (Levothyroxine Sodium) 25 Mcg Cap, 25 MCG PO, CAP 10/27/24 Aspirin (Aspir-Low) 81 Mg Tab, 81 MG PO, TAB 10/27/24 Cholecalciferol (VITAMIN D3) 2,000 Unit Tab, 1 TAB PO DAILY, #30 TAB 5 Refills 10/27/24 [place]-3 Fatty Acids (Fish Oil) Cap, 1 OR, CAP 10/27/24 Doxylamine Succinate (Sleep) (Unisom) 25 Mg Tab, 25 MG PO, TAB 10/27/24 Vit W/ Ferrous Fumara ( One Daily) Daily Tab, 1 TAB PO DAILY, #90 TAB 3 Refills 11/26/18 Current Medications Current Medications Medications (Trade) Dose Ordered Sig/Freddy Route PRN Reason Start Time Stop Time Status Last Admin Lactated Ringer's 1,000 ml @ 125 mls/hr Q8H IV 12/29/24 04:00 Witch Ruth (Tucks) 1 pad PRN PRN TOP PERINEAL AREA DISCOMFORT 12/29/24 04:00 Sodium Lauryl Sulfate (Phisoderm) 240 ml PRN PRN TOP PERINEAL AREA DISCOMFORT 12/29/24 04:00 Benzocaine (Dermoplast) 1 applic PRN PRN TOP PERINEAL AREA DISCOMFORT 12/29/24 04:00 Lidocaine HCl (Xylocaine) 20 ml ONCE PRN IJ PERINEAL AREA DISCOMFORT 12/29/24 04:00 Review of Systems Constitutional: No symptom reported Ears, Nose, & Throat: No symptom reported Eyes: No symptom reported Pulmonary/Respiratory: No symptom reported Cardiovascular: No symptom reported Gastrointestinal: No symptom reported Genitourinary: No symptom reported Musculoskeletal: No symptom reported Skin: No symptom reported Psychiatric: No symptom reported Endocrine: No symptom reported Hemotologic/Lymphatic: No symptom reported OB Admission Exam Physical Exam HEENT: NCAT Heart: Rhythm Normal Lungs: Clear Abdomen: Gravid Extremities: Normal Reflexes: Normal Cervical Dilatation: Fingertip Effacement: 25% Station: -3 Membranes: Intact Heart Rate: 140's Accelerations: Accelerations Present Decelerations: No Decelerations Short Term Variability: Present Fpc Variability: Average (6-25) Contractions on Admission: None OB Plan Plan Admitting Diagnosis: Induction of Labor Plan: Induction Visit Coding OBGYN Date of Service: Dec 29, 2024 Billing Provider: HERMINIO STEVENS CNM DISTRICT WIRE CHIEF Common Visit Codes: [id number] OBS CARE (MOD) [facility] [place] [facility] 05:53
[2024-12-29] MEDS: LACTATED RINGER'S 1,000 ML IV SCH (06:12)
--- NOTE | 2024-12-29 06:48 | DVH ---
LIMITED OB ULTRASOUND: HISTORY: Presentation prior to induction of labor TECHNIQUE: Multiple real-time grayscale images of the gravid uterus with duplex Doppler color flow an d M-mode spectral analysis. COMPARISON: US OB ULTRASOUND COMP GTR 14 WKS on DOS: 12/22/24, US OB ULTRASOUND COMP GTR 14 WKS on DOS : 12/15/24, US OBSTERICAL LIMITED on DOS: 09/27/24 FINDINGS: IUP single live fetus at 39 weeks 4 days. heart rate 125 beats per minute NICOLE 12.8 cm Cephalic Presentation Anterior placenta without previa or abruption. IMPRESSION: 1. IUP single live fetus at 39 weeks 4 days. 2. Positive heart tones. 3. No evidence of placenta previa or abruption.
--- NOTE | 2024-12-29 07:51 | DVHPN2 ---
CNM Labor Progress Note Date and Time Seen Date Seen: Dec 29, 2024 Time Seen: 07:49 Subjective Subjective Comment Pt is feeling uterine cramps in her lower abdomen, tolerable. Objective Vital Signs VSS, see chart Monitoring Method Monitoring Method: External Heart Rate Heart Rate Baseline: 135 Heart Rate Variability: Moderate Presence of FHR Accelerations: Yes Presence of FHR Decelerations: No Are all 5 Components of the FH: Yes Contractions Contractions Frequency: Other (q2-4 min) Duration of Contraction: 80 Contractions Intensity: Mild Contractions Resting Tone: Relaxed Membranes Membranes: Intact Vaginal Exam Vag Exam Deferred: Yes (SVE by RN: //3) Medications Medications - Pitocin: No Medications - Pain Medications: PRN Medication - Epidural: No Medication - Other s/p 1 dose of PO cytotec Lab Results Lab Results Current Medications Medications (Trade) Dose Ordered Sig/Freddy Start Time Stop Time Status Last Admin Dose Admin Lactated Ringer's 1,000 ml @ 125 mls/hr Q8H 12/29/24 04:00 12/29/24 06:12 125 MLS/HR Witch Ruth (Tucks) 1 pad PRN PRN 12/29/24 04:00 Sodium Lauryl Sulfate (Phisoderm) 240 ml PRN PRN 12/29/24 04:00 Benzocaine (Dermoplast) 1 applic PRN PRN 12/29/24 04:00 Lidocaine HCl (Xylocaine) 20 ml ONCE PRN 12/29/24 04:00 Misoprostol (Cytotec) 50 mcg Q4HPRN PRN 12/29/24 06:00 12/29/24 10:58 50 MCG Levothyroxine Sodium (Synthroid Tablet) 50 mcg QAM@0600 12/30/24 06:00 Laboratory Tests Test 12/29/24 07:40 12/29/24 04:10 12/29/24 04:00 Range/Units POC Glucose 88 70-106 mg/dl White Blood Count 10.0 4.4-10.8 10^3/uL Red Blood Count 4.18 4.0-5.20 10^6/uL Hemoglobin 12.4 12.2-16.2 g/dL Hematocrit 36.1 36.0-46.0 % Mean Corpuscular Volume 86.5 80.0-100.0 fL Mean Corpuscular Hemoglobin 29.8 28.0-32.0 pg Mean Corpuscular Hemoglobin Concent 34.5 32.0-36.0 g/dL Red Cell Distribution Width 13.9 11.8-14.3 % Platelet Count 229 140-450 10^3/uL Mean Platelet Volume 9.2 6.9-10.8 fL Neutrophils (%) (Auto) 68.1 37.0-80.0 % Lymphocytes (%) (Auto) 23.5 10.0-50.0 % Monocytes (%) (Auto) 5.6 0.0-12.0 % Eosinophils (%) (Auto) 2.2 0.0-7.0 % Basophils (%) (Auto) 0.6 0.0-2.0 % Neutrophils # (Auto) 6.8 1.6-8.6 10 ^3/uL Lymphocytes # (Auto) 2.3 0.4-5.4 10 ^3/uL Monocytes # (Auto) 0.6 0-1.3 10 ^3/uL Eosinophils # (Auto) 0.2 0-0.8 10 ^3/uL Basophils # (Auto) 0.1 0-0.2 10 ^3/uL Nucleated Red Blood Cells 0.0 % Prothrombin Time 10.5 9.3-11.8 sec Prothrombin Time INR 0.99 0.9-1.15 Activated Partial Thromboplast Time 26.9 24.5-34.5 SEC Sodium Level 135 L 136-145 mmol/L Potassium Level 3.6 3.5-5.1 mmol/L Chloride Level 106 98-107 mmol/L Carbon Dioxide Level 18 L 20-31 mmol/L Anion Gap 11 5-15 Blood Urea Nitrogen < 5 L 9-23 mg/dL Creatinine 0.52 L 0.550-1.02 mg/dL Glomerular Filtration Rate Calc 127 >90 mL/min BUN/Creatinine Ratio 9.6 L 10.0-20.0 Serum Glucose 111 H 74-106 mg/dL Calcium Level 9.0 8.7-10.4 mg/dL Total Bilirubin 0.3 0.2-1.0 mg/dL Aspartate Amino Transferase (AST) 19 13-40 U/L Alanine Aminotransferase (ALT) 13 7-40 U/L Alkaline Phosphatase 145 H 46-116 U/L Total Protein 6.4 5.7-8.2 g/dL Albumin 3.8 3.2-4.8 g/dL Treponema pallidum Antibody Non-reactive Negative Urine Color Light-yellow Yellow Urine Clarity Clear Clear Urine pH 6.0 5.0-9.0 Urine Specific [place] 1.015 1.001-1.035 Urine Protein Negative Negative Urine Ketones Negative Negative Urine Blood Negative Negative /uL Urine Nitrite Negative Negative Urine Bilirubin Negative Negative Urine Urobilinogen Normal Negative mg/dL Urine Leukocyte Esterase Negative Negative /uL Urine RBC None seen 0 - 4 /hpf Urine Microscopic WBC 1 0-5 /HPF Urine Squamous Epithelial Cells Few <5 /hpf Urine Bacteria None seen None Seen /hpf Urine Glucose Normal Normal mg/dL Urine Opiates Screen Neg NEGATIVE Urine Fentanyl Screen Neg NEGATIVE Urine Barbiturates Screen Neg NEGATIVE Urine Phencyclidine Screen Neg NEGATIVE Urine Amphetamines Screen Neg NEGATIVE Urine Benzodiazepines Screen Neg NEGATIVE Urine Cocaine Screen Neg NEGATIVE Urine Cannabinoids Screen Neg NEGATIVE Assessment Assessment A: 29yo IUP@39.4wks IOL for GDM, A1 Hypothyroidism arrhythmia Category I EFM Intact Membranes GBS negative Plan Plan P: Discussed risk of LGA with GDM and increased risk of shoulder dystocia (including nerve damage and clavicle/humerus broken bones). Pt and FOB verbalized understanding. Primary section offered, pt declined, wants to continue with IOL and have a vaginal . Continue IOL with PO cytotec Blood glucose check q4 hrs then in active labor q2hrs monitoring per order Pain mgmt PRN Frequent position changes in and out of bed encouraged Limit SVE unless necessary Intrauterine resuscitation PRN Anticipate TRINA is co-managing care with Dr. Irizarry. Plan discussed with: Patient, Spouse Visit Coding OBGYN Date of Service: Dec 29, 2024 Billing Provider: EDEN GARCIA CNM PANEL MACHINE SETTER Common Visit Codes: [id number] INP/OBS CARE(HIGH) EDEN GARCIA CNM Dec 29, 2024 07:51
[2024-12-29] MEDS ORDERED: NALOXONE HCL 0.4 MG/ML VIAL IV ONE (15:15)
[2024-12-29] MEDS: LACTATED RINGER'S 1,000 ML IV ONE (15:28)
[2024-12-29] MEDS: ROPIVACAINE HCL 100 ML ONE (18:15)
--- NOTE | 2024-12-29 18:17 | DVHPN2 ---
CNM Labor Progress Note Date and Time Seen Date Seen: Dec 29, 2024 Time Seen: 18:15 Subjective Subjective Comment Pt feels better after epidural, denies pain or pressure. Objective Vital Signs VSS, see CPN Monitoring Method Monitoring Method: External Heart Rate Heart Rate Baseline: 135 Heart Rate Variability: Moderate Presence of FHR Accelerations: Yes Presence of FHR Decelerations: No Are all 5 Components of the FH: Yes Contractions Contractions Frequency: Other (q1-5 min) Duration of Contraction: 80 Contractions Intensity: Moderate Contractions Resting Tone: Relaxed Membranes Membranes: Intact Vaginal Exam Vag Exam Deferred: Yes (SVE by RN /-3) Medications Medications - Pitocin: No Medication - Epidural: Yes Medication - Other s/p 2 doses of cytotec Lab Results Lab Results Current Medications Medications (Trade) Dose Ordered Sig/Freddy Start Time Stop Time Status Last Admin Dose Admin Lactated Ringer's 1,000 ml @ 125 mls/hr Q8H 12/29/24 04:00 12/29/24 15:14 125 MLS/HR Edwardo Miranda (Tucks) 1 pad PRN PRN 12/29/24 04:00 Sodium Lauryl Sulfate (Phisoderm) 240 ml PRN PRN 12/29/24 04:00 Benzocaine (Dermoplast) 1 applic PRN PRN 12/29/24 04:00 Lidocaine HCl (Xylocaine) 20 ml ONCE PRN 12/29/24 04:00 Misoprostol (Cytotec) 50 mcg Q4HPRN PRN 12/29/24 06:00 12/29/24 10:58 50 MCG Levothyroxine Sodium (Synthroid Tablet) 50 mcg QAM@0600 12/30/24 06:00 Naloxone HCl (Narcan) 0.2 mg PRN ONCE 12/29/24 15:15 12/29/24 15:17 DC Ephedrine Sulfate (ePHEDrine SULFATE) 10 mg PRN ONCE 12/29/24 15:15 12/29/24 15:17 DC Lactated Ringer's 1,000 ml @ 1,000 mls/hr Q1H ONCE 12/29/24 15:15 12/29/24 16:14 DC 12/29/24 15:28 1,000 MLS/HR Oxytocin 1,000 ml @ 6 ml/hr Q24H 12/29/24 17:30 Laboratory Tests Test 12/29/24 17:02 12/29/24 04:10 12/29/24 04:00 Range/Units POC Glucose 77 70-106 mg/dl White Blood Count 10.0 4.4-10.8 10^3/uL Red Blood Count 4.18 4.0-5.20 10^6/uL Hemoglobin 12.4 12.2-16.2 g/dL Hematocrit 36.1 36.0-46.0 % Mean Corpuscular Volume 86.5 80.0-100.0 fL Mean Corpuscular Hemoglobin 29.8 28.0-32.0 pg Mean Corpuscular Hemoglobin Concent 34.5 32.0-36.0 g/dL Red Cell Distribution Width 13.9 11.8-14.3 % Platelet Count 229 140-450 10^3/uL Mean Platelet Volume 9.2 6.9-10.8 fL Neutrophils (%) (Auto) 68.1 37.0-80.0 % Lymphocytes (%) (Auto) 23.5 10.0-50.0 % Monocytes (%) (Auto) 5.6 0.0-12.0 % Eosinophils (%) (Auto) 2.2 0.0-7.0 % Basophils (%) (Auto) 0.6 0.0-2.0 % Neutrophils # (Auto) 6.8 1.6-8.6 10 ^3/uL Lymphocytes # (Auto) 2.3 0.4-5.4 10 ^3/uL Monocytes # (Auto) 0.6 0-1.3 10 ^3/uL Eosinophils # (Auto) 0.2 0-0.8 10 ^3/uL Basophils # (Auto) 0.1 0-0.2 10 ^3/uL Nucleated Red Blood Cells 0.0 % Prothrombin Time 10.5 9.3-11.8 sec Prothrombin Time INR 0.99 0.9-1.15 Activated Partial Thromboplast Time 26.9 24.5-34.5 SEC Sodium Level 135 L 136-145 mmol/L Potassium Level 3.6 3.5-5.1 mmol/L Chloride Level 106 98-107 mmol/L Carbon Dioxide Level 18 L 20-31 mmol/L Anion Gap 11 5-15 Blood Urea Nitrogen < 5 L 9-23 mg/dL Creatinine 0.52 L 0.550-1.02 mg/dL Glomerular Filtration Rate Calc 127 >90 mL/min BUN/Creatinine Ratio 9.6 L 10.0-20.0 Serum Glucose 111 H 74-106 mg/dL Calcium Level 9.0 8.7-10.4 mg/dL Total Bilirubin 0.3 0.2-1.0 mg/dL Aspartate Amino Transferase (AST) 19 13-40 U/L Alanine Aminotransferase (ALT) 13 7-40 U/L Alkaline Phosphatase 145 H 46-116 U/L Total Protein 6.4 5.7-8.2 g/dL Albumin 3.8 3.2-4.8 g/dL Treponema pallidum Antibody Non-reactive Negative Urine Color Light-yellow Yellow Urine Clarity Clear Clear Urine pH 6.0 5.0-9.0 Urine Specific [place] 1.015 1.001-1.035 Urine Protein Negative Negative Urine Ketones Negative Negative Urine Blood Negative Negative /uL Urine Nitrite Negative Negative Urine Bilirubin Negative Negative Urine Urobilinogen Normal Negative mg/dL Urine Leukocyte Esterase Negative Negative /uL Urine RBC None seen 0 - 4 /hpf Urine Microscopic WBC 1 0-5 /HPF Urine Squamous Epithelial Cells Few <5 /hpf Urine Bacteria None seen None Seen /hpf Urine Glucose Normal Normal mg/dL Urine Opiates Screen Neg NEGATIVE Urine Fentanyl Screen Neg NEGATIVE Urine Barbiturates Screen Neg NEGATIVE Urine Phencyclidine Screen Neg NEGATIVE Urine Amphetamines Screen Neg NEGATIVE Urine Benzodiazepines Screen Neg NEGATIVE Urine Cocaine Screen Neg NEGATIVE Urine Cannabinoids Screen Neg NEGATIVE Assessment Assessment A: 29yo IUP@39.4wks IOL for GDM, A1 Hypothyroidism arrhythmia Category I EFM Intact Membranes GBS negative Plan Plan P: Start IV pitocin per order Blood glucose check q4 hrs then in active labor q2hrs Levothyroxine 50mcg PO qAM monitoring per order Pain management: Epidural Frequent position changes in bed encouraged Limit SVE unless necessary Intrauterine resuscitation PRN Anticipate CNEvangelista is co-managing care with Dr. Irizarry. Plan discussed with: Patient Visit Coding OBGYN Date of Service: Dec 29, 2024 Billing Provider: EDEN GARCIA CNM ECOLOGICAL MODELER Common Visit Codes: [id number] INP/OBS CARE(HIGH) EDEN GARCIA CNM Dec 29, 2024 18:17
[2024-12-29] MEDS: WITCH HAZEL-GLYCERIN PAD TOP PRN (18:53)
[2024-12-29] MEDS: DERMOPLAST 60ML BOTTLE TOP PRN (18:54)
[2024-12-29] MEDS: PHISODERM TOP SOLN 240ML BTL TOP PRN (18:54)
[2024-12-29] MEDS: LACT. RINGERS/OXYTOCIN 20UNITS 1,000 ML IV SCH (19:01)
[2024-12-29] MEDS: ONDANSETRON HCL 4 MG/2 ML VIAL IV PRN (21:24)
--- NOTE | 2024-12-29 21:45 | DVHPN2 ---
CNM Labor Progress Note Date and Time Seen Date Seen: Dec 29, 2024 Time Seen: 21:30 Subjective Subjective Comment Patient reports feeling more pressure after ROM, denies pain Objective Vital Signs VSS, See CPN Monitoring Method Monitoring Method: External Heart Rate Heart Rate Baseline: 135 Heart Rate Variability: Moderate Presence of FHR Accelerations: Yes Presence of FHR Decelerations: No Are all 5 Components of the FH: Yes Contractions Contractions Frequency: Other (Q2-4min) Duration of Contraction: 100 Contractions Intensity: Moderate Contractions Resting Tone: Relaxed Membranes Membranes: Ruptured Amniotic Fluid Color: Clear Vaginal Exam Vag Exam Deferred: No Vaginal Exam Dilation: 6 Vaginal Exam Effacement: 100 Vaginal Exam Station: -2 Vaginal Exam Presentation: VTX Vaginal Exam Show: Small Medications Medications - Pitocin: Yes (4mu/min) Medication - Epidural: Yes Medication - Other S/P cytotec x2 Lab Results Lab Results Current Medications Medications (Trade) Dose Ordered Sig/Freddy Start Time Stop Time Status Last Admin Dose Admin Lactated Ringer's 1,000 ml @ 125 mls/hr Q8H 12/29/24 04:00 12/29/24 15:14 125 MLS/HR Witch Ruth (Tucks) 1 pad PRN PRN 12/29/24 04:00 12/29/24 18:53 1 PAD Sodium Lauryl Sulfate (Phisoderm) 240 ml PRN PRN 12/29/24 04:00 12/29/24 18:54 240 ML Benzocaine (Dermoplast) 1 applic PRN PRN 12/29/24 04:00 12/29/24 18:54 1 APPLIC Lidocaine HCl (Xylocaine) 20 ml ONCE PRN 12/29/24 04:00 Misoprostol (Cytotec) 50 mcg Q4HPRN PRN 12/29/24 06:00 12/29/24 10:58 50 MCG Levothyroxine Sodium (Synthroid Tablet) 50 mcg QAM@0600 12/30/24 06:00 Naloxone HCl (Narcan) 0.2 mg PRN ONCE 12/29/24 15:15 12/29/24 15:17 DC Ephedrine Sulfate (ePHEDrine SULFATE) 10 mg PRN ONCE 12/29/24 15:15 12/29/24 15:17 DC Lactated Ringer's 1,000 ml @ 1,000 mls/hr Q1H ONCE 12/29/24 15:15 12/29/24 16:14 DC 12/29/24 15:28 1,000 MLS/HR Oxytocin 1,000 ml @ 6 ml/hr Q24H 12/29/24 17:30 12/29/24 19:01 6 ML/HR Ondansetron HCl (Zofran) 4 mg Q4HPRN PRN 12/29/24 21:00 12/29/24 21:24 4 MG Laboratory Tests Test 12/29/24 20:51 12/29/24 04:10 12/29/24 04:00 Range/Units POC Glucose 80 70-106 mg/dl White Blood Count 10.0 4.4-10.8 10^3/uL Red Blood Count 4.18 4.0-5.20 10^6/uL Hemoglobin 12.4 12.2-16.2 g/dL Hematocrit 36.1 36.0-46.0 % Mean Corpuscular Volume 86.5 80.0-100.0 fL Mean Corpuscular Hemoglobin 29.8 28.0-32.0 pg Mean Corpuscular Hemoglobin Concent 34.5 32.0-36.0 g/dL Red Cell Distribution Width 13.9 11.8-14.3 % Platelet Count 229 140-450 10^3/uL Mean Platelet Volume 9.2 6.9-10.8 fL Neutrophils (%) (Auto) 68.1 37.0-80.0 % Lymphocytes (%) (Auto) 23.5 10.0-50.0 % Monocytes (%) (Auto) 5.6 0.0-12.0 % Eosinophils (%) (Auto) 2.2 0.0-7.0 % Basophils (%) (Auto) 0.6 0.0-2.0 % Neutrophils # (Auto) 6.8 1.6-8.6 10 ^3/uL Lymphocytes # (Auto) 2.3 0.4-5.4 10 ^3/uL Monocytes # (Auto) 0.6 0-1.3 10 ^3/uL Eosinophils # (Auto) 0.2 0-0.8 10 ^3/uL Basophils # (Auto) 0.1 0-0.2 10 ^3/uL Nucleated Red Blood Cells 0.0 % Prothrombin Time 10.5 9.3-11.8 sec Prothrombin Time INR 0.99 0.9-1.15 Activated Partial Thromboplast Time 26.9 24.5-34.5 SEC Sodium Level 135 L 136-145 mmol/L Potassium Level 3.6 3.5-5.1 mmol/L Chloride Level 106 98-107 mmol/L Carbon Dioxide Level 18 L 20-31 mmol/L Anion Gap 11 5-15 Blood Urea Nitrogen < 5 L 9-23 mg/dL Creatinine 0.52 L 0.550-1.02 mg/dL Glomerular Filtration Rate Calc 127 >90 mL/min BUN/Creatinine Ratio 9.6 L 10.0-20.0 Serum Glucose 111 H 74-106 mg/dL Calcium Level 9.0 8.7-10.4 mg/dL Total Bilirubin 0.3 0.2-1.0 mg/dL Aspartate Amino Transferase (AST) 19 13-40 U/L Alanine Aminotransferase (ALT) 13 7-40 U/L Alkaline Phosphatase 145 H 46-116 U/L Total Protein 6.4 5.7-8.2 g/dL Albumin 3.8 3.2-4.8 g/dL Treponema pallidum Antibody Non-reactive Negative Urine Color Light-yellow Yellow Urine Clarity Clear Clear Urine pH 6.0 5.0-9.0 Urine Specific [place] 1.015 1.001-1.035 Urine Protein Negative Negative Urine Ketones Negative Negative Urine Blood Negative Negative /uL Urine Nitrite Negative Negative Urine Bilirubin Negative Negative Urine Urobilinogen Normal Negative mg/dL Urine Leukocyte Esterase Negative Negative /uL Urine RBC None seen 0 - 4 /hpf Urine Microscopic WBC 1 0-5 /HPF Urine Squamous Epithelial Cells Few <5 /hpf Urine Bacteria None seen None Seen /hpf Urine Glucose Normal Normal mg/dL Urine Opiates Screen Neg NEGATIVE Urine Fentanyl Screen Neg NEGATIVE Urine Barbiturates Screen Neg NEGATIVE Urine Phencyclidine Screen Neg NEGATIVE Urine Amphetamines Screen Neg NEGATIVE Urine Benzodiazepines Screen Neg NEGATIVE Urine Cocaine Screen Neg NEGATIVE Urine Cannabinoids Screen Neg NEGATIVE Assessment Assessment A: 29yo IUP@39.4wks IOL for GDM, A1 Hypothyroidism arrhythmia Category I EFM SROM, clear fluid GBS negative Plan Plan P: Continue IV pitocin per order Blood glucose check q2hrs Levothyroxine 50mcg PO qAM monitoring per order Pain management: Epidural Frequent position changes in bed encouraged Limit SVE unless necessary Intrauterine resuscitation PRN Anticipate CNEvangelista is co-managing care with Dr. Irizarry. Plan discussed with: Patient, Spouse Visit Coding OBGYN Date of Service: Dec 29, 2024 Billing Provider: EDEN GARCIA CNM SALES TRAINING COORDINATOR Common Visit Codes: [id number] INP/OBS CARE(HIGH) ION SCHMID STUDENTMDW Dec 29, 2024 21:45
[2024-12-30] MEDS: ROPIVACAINE HCL 100 ML ONE (01:28)
--- NOTE | 2024-12-30 04:02 | LDN2 ---
Labor and Delivery Note Date 12/30/24 Age 29 2 Para 2 AB 0 EDC 01/01/25 EGA 39.5 Diagnosis IOL for GDMA2, hypothyroidism, and arrhythmia then Vaginal Delivery: VTX Vacuum Assisted: No Placenta: Spontaneous Sex: Female Weight Pending Apgars 7/8 Nuchal Cord Transected: No Amniotic Fluid: Clear Anesthesia Epidural Episiotomy: No Extension: No Repaired with N/A EBL 50 Labs Blood Bank 12/29/24 04:10: Blood Type O POSITIVE Complications None Conditions Stable Tornado Chaser Rolando Comments/Significant Med Kalyani At 0322 this 29yo now delivered a viable Female by w/ APGARS 7/8. NORRIS. Infant placed skin to skin on pts chest. Cord clamped and cut after pulsation ceased. Cord blood sent. Pitocin IV bolus started. Intact 3-vessel cord placenta delivered spontaneously, Clint. Placenta sent to pathology. Patient had epidural. Cervix/vagina inspected (intact) and intact perineum. Straight cath performed, 150ml urine output. Fundus at U, firm, midline, and light lochia. QBL 50ml. VSS. Count correct x2. Patient to care and baby to couplet care, both stable. Visit Coding OBGYN Date of Service: Dec 30, 2024 Billing Provider: EDEN GARCIA CNM WAREHOUSE LOGISTICS MANAGER Common Visit Codes: PROCEDURE ONLY WAREHOUSE LOGISTICS MANAGER Procedure Codes: [id number] DEL INCLUDING ION SCHMIDMDW Dec 30, 2024 04:02
[2024-12-30] MEDS ORDERED: ACETAMINOPHEN 325 MG TAB PO PRN (04:15)
[2024-12-30] MEDS: LACT. RINGERS/OXYTOCIN 20UNITS 500 ML IV ONE ×2 (04:50→04:51)
[2024-12-30] MEDS: IBUPROFEN 600 MG TAB PO PRN (05:02)
[2024-12-30] MEDS: LEVOTHYROXINE SODIUM 50 MCG TAB PO SCH (06:29)
[2024-12-30 06:40] VITALS: BP 110/55; RESP 16; TEMP 98.4; O2SAT 96
[2024-12-30] MEDS: PRENATAL VITAMIN TAB PO SCH (10:00)
[2024-12-30 11:03] VITALS: BP 114/70; PULSE 89; RESP 16; TEMP 97.9; O2SAT 96
[2024-12-30 14:30] VITALS: BP 109/55; PULSE 75; RESP 20; TEMP 98.2; O2SAT 96
[2024-12-30 19:15] VITALS: BP 101/52; PULSE 75; RESP 18; TEMP 98; O2SAT 96
[2024-12-30 20:37] LABS: Hematocrit 36.8 % (36.0-46.0); Hemoglobin 12.5 g/dL (12.2-16.2); Mean Corpuscular Hemoglobin 29.5 pg (28.0-32.0); Mean Corpuscular Volume 87.2 fL (80.0-100.0); Nucleated Red Blood Cells % 0.0 %
[2024-12-30] MEDS: DOCUSATE SOD 100 MG CAP PO SCH (21:44)
[2024-12-30] MEDS ORDERED: DOCU-94 PO (22:39)
[2024-12-30] MEDS ORDERED: IBU600T PO (22:39)
[2024-12-30] MEDS ORDERED: PREN-96 PO (22:39)
[2024-12-30] MEDS ORDERED: LEVO75TA6 PO (22:39)
[2024-12-30 23:00] VITALS: BP 108/54; PULSE 81; RESP 18; TEMP 98
--- NOTE | 2024-12-31 00:20 | DVHPN2 ---
Progress Note Date Seen: Dec 31, 2024 Subjective S: Pt is unable to move right foot, it still feels numb. She can move right leg though. Bleeding is less, eating food without issues, denies lightheaded/dizziness, pain well controlled with oral medications, no concerns with urinating, passing flatus, no BM yet, ambulating well, using breast pump while baby is in NICU at [facility]. vital signs Vital Sign Date Time Temp Pulse Resp B/P (MAP) Pulse Ox O2 Delivery O2 Flow Rate FiO2 12/30/24 23:00 98.0 81 18 108/54 (72) 98.0 12/30/24 19:15 Room Air 12/30/24 19:15 96 Total Intake and Output 12/30/24 12/30/24 12/31/24 15:00 23:00 07:00 Output Total 1000 ml 250 ml Balance -1000 ml -250 ml medications Current Medications Medications Dose Ordered Sig/Freddy Route Start Time Stop Time Status Last Admin Dose Admin Edwardo Miranda 1 pad PRN PRN TOP 12/29/24 04:00 12/29/24 18:53 1 PAD Sodium Lauryl Sulfate 240 ml PRN PRN TOP 12/29/24 04:00 12/29/24 18:54 240 ML Benzocaine 1 applic PRN PRN TOP 12/29/24 04:00 12/29/24 18:54 1 APPLIC Levothyroxine Sodium 50 mcg QAM@0600 PO 12/30/24 06:00 12/30/24 06:29 50 MCG Ondansetron HCl 4 mg Q4HPRN PRN IV 12/29/24 21:00 12/30/24 01:28 4 MG Ibuprofen 600 mg Q6HP PRN PO 12/30/24 04:15 12/30/24 22:46 600 MG Acetaminophen 650 mg Q6HPRN PRN PO 12/30/24 04:15 Prenat Multivit/ Stites/Iron/Folic Ac 1 DAILY PO 12/30/24 10:00 Docusate Sodium 200 mg HS PO 12/30/24 22:00 12/30/24 21:44 200 MG laboratory and microbiology Laboratory Tests 12/30/24 20:01 12/29/24 04:10 Test 12/29/24 04:10 Range/Units Serum Glucose 111 H 74-106 mg/dL Objective O: VSS Chest: heart sounds normal and lung sounds clear bilaterally Abd: soft, non-tender, fundus 1 below/firm/midline, active bowel sounds, no rebound or guarding Perineum: intact no erythema/edema noted Right lower Ext: 1+ non-pitting edema, non-tender, cold to touch, able to move leg but not foot Left lower Ext: Non-tender, No edema, able to move Lochia: minimal See lab results Problems(with codes): (1) Hypothyroid (2) (normal spontaneous vaginal delivery) (3) Intact perineum Assessment/Plan A: 29yo now PPD#1 s/p Hypothyroidism Rh+ Rubella Immune Pumping breast milk, baby in NICU at [facility] P: D/C home today if pt is able to move her right foot. Hot packs applied to right foot to stimulate blood flow. Rx sent to pharmacy, levothyroxine dose increased to 75mcg daily based on TSH/free T4 labs. precautions and preeclampsia warning signs reviewed F/U with [facility] office in 2 weeks Plan discussed with: Patient, Spouse Visit Coding OBGYN Date of Service: Dec 31, 2024 Billing Provider: EDEN GARCIA CNM WORKING SECOND HAND Common Visit Codes: [id number] INP/OBS CARE(MOD) EDEN GARCIA CNM Dec 31, 2024 00:20
--- NOTE | 2024-12-31 00:21 | DVHDS2 ---
Obstetrics Discharge Summary Obstetrics Discharge Summary Date of Admission: Dec 29, 2024 Date of Discharge: Dec 31, 2024 Reason For Admission: Induction of Labor Procedures: NST, Ultrasound, Mgmt of Obstetrics Compli (GDM,A1 and arrythmia) Intrapartum Procedures: Spontaneous vaginal deliv Procedures: Hct/date: (12/30/24), Hgb/date: (12/30/24) Operative Complicat: None Discharge Diagnosis: Term -Delivered Discharge Information: Activity (as tolerated, no heavy lifting and nothing in the vagina for 6 weeks), Diet (Routine), Medications (Rx sent), Instructions (Routine), Discharge to (Home), Accompanied by (partner), Discarge date (12/31/24) Visit Coding OBGYN Date of Service: Dec 31, 2024 Billing Provider: EDEN GARCIA CNM CAN PILER Common Visit Codes: [id number] DISCH DAY <30MIN EDEN GARCIA CNM Dec 31, 2024 00:21
[2024-12-31 03:00] VITALS: BP 96/55; PULSE 66; RESP 17; TEMP 98.1; O2SAT 97
[2024-12-31 07:05] VITALS: BP 119/59; RESP 16; TEMP 97.9; O2SAT 99
--- NOTE | 2024-12-31 08:08 | DVH ---
Right Lower Extremity Arterial Duplex Date: 12/31/2024 07:25 AM Clinical History: numbness in lower right extremity S/P EPIDURAL Comparison: US RT LOWER DVT on DOS: 12/31/24 Technique: Duplex Doppler evaluation including color Doppler and spectral/pulsed waveform analysis of the right lower extremity arteries was performed. Finding: RIGHT: Peak systolic velocities are as follows: LEATHER BELT MAKER 147 cm/s Deep femoral 92 cm/s SFA proximal 101 cm/s SFA mid-portion 105 cm/s SFA distal 76 cm/s Popliteal 64 cm/s Posterior tibial 62 cm/s Anterior tibial 74 cm/s Peroneal not imaged Dorsalis pedis 61 cm/s The waveforms are triphasic. REFERENCE VALUES, [facility] ([facility]) vascular Imaging Lab Criteria: Peak systolic velocity ranges (in cm/sec) are as follows: <150 cm/s - <20 % stenosis 150-200 cm/s - 20-49% stenosis 200-300 cm/s - 50-75% stenosis >300 cm/s -> 75% stenosis IMPRESSION: 1. There is no evidence for peripheral vascular insufficiency in the right lower extremity.
--- NOTE | 2024-12-31 08:45 | DVH ---
Right lower extremity venous duplex Clinical History: numbness in lower right extremity S/P EPIDURAL Comparison: US RT LOW EXT ART DUPLEX on DOS: 12/31/24 Findings: Duplex Doppler evaluation of the deep venous system of the right lower extremity from the common femo ral vein to the popliteal vein including color Doppler and spectral/pulsed waveform analysis was perf ormed. The common femoral vein demonstrates appropriate compressibility and waveform variability. There is compressibility/patency of the great saphenous vein at the proximal thigh. The femoral vein demonstrates appropriate compressibility and waveform variability. The deep femoral vein demonstrates appropriate compressibility and waveform variability. The popliteal vein demonstrates appropriate compressibility and waveform variability. There is normal compressibility at the tibioperoneal trunk. Impression: No right femoropopliteal venous thrombosis. If clinical concern/symptoms persist or worsen, short-interval follow-up study is suggested.
[2024-12-31 11:00] VITALS: BP 140/63; PULSE 93; RESP 16; TEMP 98.4; O2SAT 97
--- NOTE | 2024-12-31 15:28 | DVHPN2 ---
Chief Complaints Patient reports: No new complaints Nursing reports: No new complaints Objective Vitals Vital Signs Date Time Temp Pulse Resp B/P (MAP) Pulse Ox O2 Delivery O2 Flow Rate FiO2 12/31/24 11:00 98.4 93 16 140/63 (88) 97 98.4 12/31/24 07:00 Room Air Medications Current Medications Medications (Trade) Dose Ordered Sig/Freddy Route PRN Reason Start Time Stop Time Status Last Admin Docusate Sodium (Colace Capsule) 200 mg HS PO 12/30/24 22:00 12/30/24 21:44 General: Normal Lungs: Normal Cardiovascular: Normal Abdominal: Soft Musculoskeletal: Normal Extremities: Normal Studies Laboratory Tests 12/30/24 20:01 12/29/24 04:10 Test 12/29/24 04:10 Range/Units Serum Glucose 111 H 74-106 mg/dL Ass/Plan Assessment S/P Plan PT SEEN BY ANESTH CLEARED,DOPPLERS NL,FEELING BETTER SHE WANTS TO GO HOME FU 1WK Visit Coding OBGYN Date of Service: Dec 31, 2024 Billing Provider: ROCIO DAWSON DO DIRECTOR OF MOBILE MARKETING Common Visit Codes: [id number] INP/OBS CARE(HIGH) DIRECTOR OF MOBILE MARKETING Procedure Codes: [id number] DELIVERY ONLY ROCIO DAWSON DO Dec 31, 2024 15:28
--- NOTE | 2024-12-31 15:28 | DVHINCON2 ---
Date of service: Dec 31, [address] Irizarry Reason for Consultation Patient report of numbness and tingling in bilateral feet, Right greater than Left. Allergies: Coded Allergies: Tomato (Verified Allergy, Intermediate, rash, 12/29/24) Home Meds Active Scripts Docusate Sodium (Colace) 100 Mg Cap, 1 CAP PO BID PRN, #60 CAP 2 Refills Prov:EDEN GARCIA CN 12/30/24 Ibuprofen Micronized (MOTRIN TABLET) 600 Mg Tb, 600 MG PO Q6HP PRN for 20 Days, #80 TAB Prov:EDEN GARCIA CN 12/30/24 Levothyroxine Sodium (Levothyroxine Sodium) 75 Mcg Tab, 1 TAB PO DAILY, #90 TAB 3 Refills Prov:EDEN GARCIA [facility] 12/30/24 Vit W/ Ferrous Fumara ( One Daily) Daily Tab, 1 TAB PO DAILY for 90 Days, #90 TAB 3 Refills Prov:EDEN GARCIA [facility] 12/30/24 Reported Medications Levothyroxine Sodium (Levothyroxine Sodium) 50 Mcg Tab, 50 MCG PO QAM for 30 Days, MCG 12/11/24 Levothyroxine Sodium (Levothyroxine Sodium) 25 Mcg Cap, 25 MCG PO, CAP 10/27/24 Aspirin (Aspir-Low) 81 Mg Tab, 81 MG PO, TAB 10/27/24 Cholecalciferol (VITAMIN D3) 2,000 Unit Tab, 1 TAB PO DAILY, #30 TAB 5 Refills 10/27/24 Waterproof-3 Fatty Acids (Fish Oil) Cap, 1 OR, CAP 10/27/24 Doxylamine Succinate (Sleep) (Unisom) 25 Mg Tab, 25 MG PO, TAB 10/27/24 Current Medications Current Medications Medications (Trade) Dose Ordered Sig/Freddy Route PRN Reason Start Time Stop Time Status Last Admin Docusate Sodium (Colace Capsule) 200 mg HS PO 12/30/24 22:00 12/30/24 21:44 Vital Signs Vital Signs Date Time Temp Pulse Resp B/P (MAP) Pulse Ox O2 Delivery O2 Flow Rate FiO2 12/31/24 11:00 98.4 93 16 140/63 (88) 97 98.4 12/31/24 07:00 Room Air Physical Exam Patient is evaluated at the bedside. Patient states that she talked to Dr. Foreman yesterday about bilateral feet numbness/tingling after delivery. Today, she states that the left foot it fine but the right foot is still numb and tingly. She is able to ambulate independently without issue(s). She is able to move her foot and toes. When asked, she states that she has no problems with going to the bathroom, urinating or defecating. This constitutes full spinal function from the level of the epidural anesthesia to the base of the spine, about T6 to S2-3. Spinal nerves are therefor grossly intact and there appears to be no sequelae from the MARTINE. The patient is then counseled on sciatic nerve pain and/or injury. She states that she did have sciatic nerve pain during the and that it was mostly in the right side. She and her further state that [facility] for an 'extended' period of time prior to the delivery. Patient is further counseled on sciatic nerve pain/injury and told to follow up with her PCP if there is no resolution in the next week or symptoms get worse. Patient acknowledges this and states that she plans to remain active and continue stretching to loosen this area. Further questions are sought and answered to the satisfaction of the patient. Plan per OB is to discharge patient to home this afternoon. VSS, no other issues to report. Labs/Diagnostic Data Labs Test 12/30/24 20:01 12/30/24 18:49 12/30/24 01:35 12/29/24 04:10 Range/Units White Blood Count 11.7 H 4.4-10.8 10^3/uL Red Blood Count 4.23 4.0-5.20 10^6/uL Hemoglobin 12.5 12.2-16.2 g/dL Hematocrit 36.8 36.0-46.0 % Mean Corpuscular Volume 87.2 80.0-100.0 fL Mean Corpuscular Hemoglobin 29.5 28.0-32.0 pg Mean Corpuscular Hemoglobin Concent 33.9 32.0-36.0 g/dL Red Cell Distribution Width 14.0 11.8-14.3 % Platelet Count 219 140-450 10^3/uL Mean Platelet Volume 9.5 6.9-10.8 fL Neutrophils (%) (Auto) 69.2 37.0-80.0 % Lymphocytes (%) (Auto) 21.2 10.0-50.0 % Monocytes (%) (Auto) 7.1 0.0-12.0 % Eosinophils (%) (Auto) 2.2 0.0-7.0 % Basophils (%) (Auto) 0.3 0.0-2.0 % Neutrophils # (Auto) 8.1 1.6-8.6 10 ^3/uL Lymphocytes # (Auto) 2.5 0.4-5.4 10 ^3/uL Monocytes # (Auto) 0.8 0-1.3 10 ^3/uL Eosinophils # (Auto) 0.3 0-0.8 10 ^3/uL Basophils # (Auto) 0 0-0.2 10 ^3/uL Nucleated Red Blood Cells 0.0 % Thyroid Stimulating Hormone (TSH) 3.40 0.55-4.78 uIU/mL Free Thyroxine (T4) Calculated 1.05 0.89-1.76 ng/dL POC Glucose 110 H 70-106 mg/dl Prothrombin Time 10.5 9.3-11.8 sec Prothrombin Time INR 0.99 0.9-1.15 Activated Partial Thromboplast Time 26.9 24.5-34.5 SEC Sodium Level 135 L 136-145 mmol/L Potassium Level 3.6 3.5-5.1 mmol/L Chloride Level 106 98-107 mmol/L Carbon Dioxide Level 18 L 20-31 mmol/L Anion Gap 11 5-15 Blood Urea Nitrogen < 5 L 9-23 mg/dL Creatinine 0.52 L 0.550-1.02 mg/dL Glomerular Filtration Rate Calc 127 >90 mL/min BUN/Creatinine Ratio 9.6 L 10.0-20.0 Serum Glucose 111 H 74-106 mg/dL Calcium Level 9.0 8.7-10.4 mg/dL Total Bilirubin 0.3 0.2-1.0 mg/dL Aspartate Amino Transferase (AST) 19 13-40 U/L Alanine Aminotransferase (ALT) 13 7-40 U/L Alkaline Phosphatase 145 H 46-116 U/L Total Protein 6.4 5.7-8.2 g/dL Albumin 3.8 3.2-4.8 g/dL Treponema pallidum Antibody Non-reactive Negative Test 12/29/24 04:00 Range/Units Urine Color Light-yellow Yellow Urine Clarity Clear Clear Urine pH 6.0 5.0-9.0 Urine Specific Ronald 1.015 1.001-1.035 Urine Protein Negative Negative Urine Ketones Negative Negative Urine Blood Negative Negative /uL Urine Nitrite Negative Negative Urine Bilirubin Negative Negative Urine Urobilinogen Normal Negative mg/dL Urine Leukocyte Esterase Negative Negative /uL Urine RBC None seen 0 - 4 /hpf Urine Microscopic WBC 1 0-5 /HPF Urine Squamous Epithelial Cells Few <5 /hpf Urine Bacteria None seen None Seen /hpf Urine Glucose Normal Normal mg/dL Urine Opiates Screen Neg NEGATIVE Urine Fentanyl Screen Neg NEGATIVE Urine Barbiturates Screen Neg NEGATIVE Urine Phencyclidine Screen Neg NEGATIVE Urine Amphetamines Screen Neg NEGATIVE Urine Benzodiazepines Screen Neg NEGATIVE Urine Cocaine Screen Neg NEGATIVE Urine Cannabinoids Screen Neg NEGATIVE Plan discussed with: Patient, Spouse, Other RAY MCLEOD CRNA Dec 31, 2024 15:28
[2024-12-31 15:30] VITALS: BP 121/58; PULSE 68; RESP 16; TEMP 98.2
== END 2024-12-31 16:26 | disposition home or self-care (01) | DRG 560 ==
LOC: LDRP 03:50
PROVIDERS: ADMIT Obstetrics & Gynecology; ATTEND Obstetrics & Gynecology
PROC: 3E0R3BZ Introduction of Anesthetic Agent into Spinal Canal, Percutaneous Approach (ICD-10-PCS; 2024-12-29)
PROC: 00HU33Z Insertion of Infusion Device into Spinal Canal, Percutaneous Approach (ICD-10-PCS; 2024-12-29)
PROC: 10E0XZZ Delivery of Products of Conception, External Approach (ICD-10-PCS; principal; 2024-12-30)
DX: O76 Abnormality in fetal heart rate and rhythm complicating labor and delivery (principal); Z37.0 Single live birth; O24.410 Gestational diabetes mellitus in pregnancy, diet controlled; E03.9 Hypothyroidism, unspecified; O99.284 Endocrine, nutritional and metabolic diseases complicating childbirth; E05.90 Thyrotoxicosis, unspecified without thyrotoxic crisis or storm; E66.01 Morbid (severe) obesity due to excess calories; E78.5 Hyperlipidemia, unspecified; Z3A.39 39 weeks gestation of pregnancy; Z91.018 Allergy to other foods
CPT/HCPCS: 36415; 59025; 59409; 62282; 76815; 80053; 80307; 81001; 82948; 82962; 84439; 84443; 85025; 85610; 85730; 86780; 86850; 86900; 86901; 93926; 93971; 94760; 94762; 96360; 96361; 96365; 96366; G0378; J2405; J2590